=== PATIENT | female | born 1940 | race Caucasian/White ===

== ENCOUNTER 2020-02-04 14:51 | Inpatient (IN) | payer MEDICARE, BC ==
[~2020-02-04] VITALS: Ht 152.4 cm; Wt 51.3 kg
[2020-02-05] MEDS ORDERED: Z GUARD REMEDY PASTE 57 GM TUBE TOP PRN (20:00)
[2020-02-05] MEDS ORDERED: BLOOD SUGAR DIAGNOSTIC 1 EACH STRIP VI SCH (21:45)
[2020-02-05 22:02] VITALS: BP 109/45
[2020-02-05] MEDS: BLOOD SUGAR DIAGNOSTIC 1 EACH STRIP VI SCH (22:30)
[2020-02-05] MEDS ORDERED: DEXTROSE 50% 50 ML DISP.SYRIN IV PRN (22:30)
[2020-02-05] MEDS ORDERED: ASPI-612 PO (23:17)
[2020-02-05] MEDS ORDERED: AMLO5TAB9 PO (23:18)
[2020-02-05] MEDS ORDERED: CHOL10002 PO (23:19)
[2020-02-05] MEDS ORDERED: LIOT25TA7 PO (23:19)
[2020-02-05] MEDS ORDERED: OMEP20TA20 PO (23:20)
[2020-02-05] MEDS ORDERED: LOSA1TAB42 PO (23:20)
[2020-02-05] MEDS ORDERED: PARO-64 PO (23:21)
[2020-02-05] MEDS ORDERED: UBID100T7 PO (23:22)
[2020-02-05] MEDS: INSULIN REGULAR, HUMAN 300 UNITS/3 ML VIAL SQ PRN (23:51)
--- NOTE | 2020-02-06 01:00 | NUR ---
RECEIVED REPORT AND RESUMED CARE FOR PATIENT. CONTINUED PATIENT'S ADMISSION. NOTIFIED DR WELSH AND DR HAND OF PATIENT'S ADMISSION. PATIENT IS ALERT AND VERBALLY RESPONSIVE. ABLE TO MAKE NEEDS KNOWN. PATIENT WITH EPISODE OF FORGETFULNESS. NO COMPLAINTS OF PAIN AT THIS TIME. RE-ORIENTED PATIENT TO ROOM AND BED CONTROLS. KEPT PATIENT WARM, DRY, AND COMFORTABLE. FALL AND SAFETY PRECAUTIONS OBSERVED. ALL NEEDS ATTENDED.
--- NOTE | 2020-02-06 01:30 | NUR ---
PATIENT HAD X 2 XL BM, LOOSE, BROWN. PATIENT RECEIVED MAG CITRATE FROM [facility] PRIOR TO TRANSFER PER REPORT. KEPT PATIENT CLEAN AND DRY.
[2020-02-06] MEDS ORDERED: ACETAMINOPHEN 325 MG TABLET PO PRN (02:30)
[2020-02-06 04:50] VITALS: BP 119/46
[2020-02-06] MEDS: BLOOD SUGAR DIAGNOSTIC 1 EACH STRIP VI SCH ×4 (06:30→21:03)
[2020-02-06 08:00] VITALS: BP_SYST 139; BP_SYST 165; BP_DIAS 51; BP_DIAS 56
[2020-02-06] MEDS: INSULIN REGULAR, HUMAN 300 UNIT/3 ML VIAL SQ PRN ×4 (09:12→21:06)
[2020-02-06] MEDS: ACETAMINOPHEN 325 MG TABLET PO PRN ×2 (13:31→21:04)
[2020-02-06 16:38] VITALS: BP 138/52
--- NOTE | 2020-02-06 20:00 | NUR ---
AWAKE ALERT [place] COMPLAINING OF LEFT HIP PAIN TYLENOL GRAIN 10 PO GIVEN,CALLED DAUGHTER REGARDING PAXIL, CALLED [facility] FOR PAXIL 20 MG AND BENADRYL FOR SLEEP. LEFT HIP DRESSINGS CHANGED WITH SEROUS SANGUINOUS DRAINAGE
[2020-02-06 20:36] VITALS: BP 144/46
[2020-02-06] MEDS ORDERED: PAROXETINE HCL 20 MG TABLET PO ONE (21:15)
[2020-02-06] MEDS: diphenhydrAMINE 25 MG CAP PO PRN (21:43)
--- NOTE | 2020-02-06 23:00 | NUR ---
dr almazan called for stronger pain pill norco 10 mg given,pt a little disoriented. found siiting in the bed,reposioned for comfort,reoriented bed alarm on.
[2020-02-06] MEDS: HYDROCODONE/APAP 10-325 MG TABLET PO PRN (23:26)
[2020-02-07 05:12] VITALS: BP 155/62
--- NOTE | 2020-02-07 05:49 | NUR ---
SLEPT AT LONG INTERVALS.IN NO ACUTE DISTRESS
[2020-02-07] MEDS: BLOOD SUGAR DIAGNOSTIC 1 EACH STRIP VI SCH ×4 (06:03→21:14)
[2020-02-07 07:14] LABS: BASOPHILS % (AUTO) 0.7 % (0.0-2.0); EOSINOPHILS # (AUTO) 0.1 K/uL (0.0-0.7); EOSINOPHILS % (AUTO) 1.5 % (0.0-7.0); HEMATOCRIT 25.4 % (31.2-41.9); HEMOGLOBIN 8.7 g/dL (10.9-14.3); LYMPHOCYTES % (AUTO) 14.5 % (20.5-51.5); MEAN CORPUSCULAR HEMOGLOBIN 31.3 uug (24.7-32.8); MEAN CORPUSCULAR HGB CONC 34 g/dL (32.3-35.6); MEAN CORPUSCULAR VOLUME 90.9 fL (75.5-95.3); MONOCYTES # (AUTO) 0.8 K/uL (2.0-10.0); MONOCYTES % (AUTO) 11.7 % (0.0-11.0); NEUTROPHILS # (AUTO) 5.1 K/uL (1.8-8.9); NEUTROPHILS % (AUTO) 71.6 % (38.5-71.5); PLATELET COUNT (AUTO) 328 K/uL (179-408); RED BLOOD CELL COUNT(AUTO) 2.79 MIL/uL (3.63-4.92); WHITE BLOOD COUNT (AUTO) 7.1 K/uL (3.8-11.8)
[2020-02-07 07:16] LABS: CREATININE 0.8 mg/dL (0.6-1.3); MAGNESIUM 2.2 mg/dL (1.8-2.4); PHOSPHOROUS 2.5 mg/dL (2.5-4.9); POTASSIUM 3.6 mmol/L (3.5-5.1)
[2020-02-07 07:44] VITALS: BP 170/68
[2020-02-07] MEDS: CHOLECALCIFEROL 1,000 UNIT TABLET PO SCH (08:55)
[2020-02-07] MEDS: PANTOPRAZOLE SODIUM 40 MG TABLET.DR PO SCH (08:55)
[2020-02-07] MEDS: PAROXETINE HCL 20 MG TABLET PO SCH (08:56)
[2020-02-07] MEDS: INSULIN REGULAR, HUMAN 300 UNIT/3 ML VIAL SQ PRN ×4 (08:58→21:15)
[2020-02-07] MEDS: AMLODIPINE 5 MG TABLET PO SCH (09:00)
[2020-02-07] MEDS ORDERED: Medication Not On Formulary EA (Ubidecarenone (Coenzyme Q10) 100 MG) PO SCH (09:00)
[2020-02-07] MEDS: HYDROCHLOROTHIAZIDE 12.5 MG CAPSULE PO SCH (09:00)
[2020-02-07] MEDS: ASPIRIN 325 MG TABLET PO SCH (09:00)
[2020-02-07] MEDS: LOSARTAN POTASSIUM 50 MG TABLET PO SCH (09:01)
[2020-02-07] MEDS: ACETAMINOPHEN 325 MG TABLET PO PRN ×2 (09:13→16:09)
[2020-02-07] MEDS: LIOTHYRONINE SODIUM 25 MCG TABLET PO SCH (10:10)
[2020-02-07] MEDS: METFORMIN HCL 500 MG TABLET PO SCH ×2 (12:53→17:33)
--- NOTE | 2020-02-07 14:30 | NUR ---
Family Contact: SW called the pts daughter, Rebeca ([phone]), and informed her that the pt will need caregiving resources and provided the resources to her so that she can assist with the patient. SW provided the following resources: [facility]; ([phone]), [facility]; ([phone]), [facility]; ([phone]).
--- NOTE | 2020-02-07 14:35 | NUR ---
Social Service Assessment: Patient states that she has an apartment with lots of steps and that she may need assistance when she goes back home so SW provided resources. SW provided patient with the following caregiving resources: [facility]; ([phone]), [facility]; ([phone]), [facility]; ([phone]). calender worker helper will continue to remain available to patient and provide ongoing supportive counseling and assess for any psychosocial needs. calender worker helper will encourage patient to comply with ARU goals of care.
[2020-02-07 15:15] VITALS: BP 128/50
--- NOTE | 2020-02-07 18:00 | NUR ---
Patient remains alert, oriented x 3, not in any form of distress, on room air. Patient complained of pain on left hip and requested for Tylenol PRN as ordered with noted relief. Patient participated with PT, OT and ST. Assisted patient in using the bedside commode for voiding. Needs attended to promptly. Call light and frequently used items placed within patient's reach. Safety measures maintained.
[2020-02-07] MEDS: HYDROCODONE/APAP 10-325 MG TABLET PO PRN (20:04)
--- NOTE | 2020-02-08 05:26 | NUR ---
Patient asleep easily arousable. No complain of any pain or discomfort at this time. She was able to sleep through the night. Vital signs stable. turned and repositioned. Both heels elevated with pillow. Surgical dressing kept clean and dry, no noted signs of infection. Will continue to monitor.
[2020-02-08] MEDS: BLOOD SUGAR DIAGNOSTIC 1 EACH STRIP VI SCH ×4 (06:46→21:09)
[2020-02-08 08:01] VITALS: BP 145/58
[2020-02-08] MEDS: CHOLECALCIFEROL 1,000 UNIT TABLET PO SCH (08:29)
[2020-02-08] MEDS: ASPIRIN 325 MG TABLET PO SCH (08:29)
[2020-02-08] MEDS: LOSARTAN POTASSIUM 50 MG TABLET PO SCH (08:29)
[2020-02-08] MEDS: PAROXETINE HCL 20 MG TABLET PO SCH (08:29)
[2020-02-08] MEDS: METFORMIN HCL 500 MG TABLET PO SCH ×2 (08:30→17:20)
[2020-02-08] MEDS: LIOTHYRONINE SODIUM 25 MCG TABLET PO SCH (08:30)
[2020-02-08] MEDS: HYDROCHLOROTHIAZIDE 12.5 MG CAPSULE PO SCH (08:30)
[2020-02-08] MEDS: PANTOPRAZOLE SODIUM 40 MG TABLET.DR PO SCH (08:30)
[2020-02-08] MEDS: AMLODIPINE 5 MG TABLET PO SCH (08:30)
[2020-02-08] MEDS: HYDROCODONE/APAP 10-325 MG TABLET PO PRN ×2 (08:57→17:20)
[2020-02-08] MEDS: INSULIN REGULAR, HUMAN 300 UNITS/3 ML VIAL SQ PRN ×3 (08:57→21:49)
[2020-02-08 16:47] VITALS: BP 121/42
[2020-02-08] MEDS: INSULIN REGULAR, HUMAN 300 UNIT/3 ML VIAL SQ PRN (16:48)
--- NOTE | 2020-02-08 18:05 | NUR ---
Patient continue therapy for increase strenght and endurance. Change dressing for S/P left hip nailing. draining with blood without foul smell. Patient continue pain management prior to therapy and if needed. Continue blood sugar monitoring with sliding scale protocol. tolerated well. not in distress. will continue monitor
--- NOTE | 2020-02-08 19:10 | NUR ---
INDIVIDUALIZED PLAN OF CARE
[2020-02-08 20:37] VITALS: BP 125/46
--- NOTE | 2020-02-08 20:39 | NUR ---
resting in bed upon initial rounds. AAO x3 forgetful at times. VSS no acute distress noted. Continent of bowel and bladder. Uses bedpan. Needs attended. Left hip dressing clean dry and intact. Will monitor patient. All due meds given.
[2020-02-08] MEDS: LEGATRIN PM PO SCH (21:05)
[2020-02-09] MEDS: diphenhydrAMINE 25 MG CAP PO PRN (00:48)
[2020-02-09] MEDS: HYDROCODONE/APAP 10-325 MG TABLET PO PRN ×3 (00:48→16:48)
[2020-02-09 05:10] VITALS: BP 142/52
[2020-02-09] MEDS: BLOOD SUGAR DIAGNOSTIC 1 EACH STRIP VI SCH ×4 (06:33→20:58)
--- NOTE | 2020-02-09 06:35 | NUR ---
End of shift notes: Slept well throughout the night. No acute distress noted. All needs attended and met. Continent of bowel and bladder. Uses bedpan at night. No BM noted this shift. VSS. Repositioned.
[2020-02-09 08:32] VITALS: BP 133/52
--- NOTE | 2020-02-09 09:30 | NUR ---
RECEIVED PATIENT ASLEEP IN BED, AROUSABLE BY NAME. ORIENTED X 3, FORGETFUL. VSS. NO S/S OF DISTRESS OR SOB AT THIS TIME. NOTED LEFT HIP DRESSING, DRY AND INTACT. NO S/S OF BLEEDING. ABLE TO USE BEDPAN, CONTINENT OF BOWEL AND BLADDER.
[2020-02-09] MEDS: HYDROCHLOROTHIAZIDE 12.5 MG CAPSULE PO SCH (09:37)
[2020-02-09] MEDS: PANTOPRAZOLE SODIUM 40 MG TABLET.DR PO SCH (09:37)
[2020-02-09] MEDS: METFORMIN HCL 500 MG TABLET PO SCH ×2 (09:37→17:31)
[2020-02-09] MEDS: ASPIRIN 325 MG TABLET PO SCH (09:37)
[2020-02-09] MEDS: PAROXETINE HCL 20 MG TABLET PO SCH (09:37)
[2020-02-09] MEDS: CHOLECALCIFEROL 1,000 UNIT TABLET PO SCH (09:37)
[2020-02-09] MEDS: LIOTHYRONINE SODIUM 25 MCG TABLET PO SCH (09:37)
[2020-02-09] MEDS: AMLODIPINE 5 MG TABLET PO SCH (09:40)
[2020-02-09] MEDS: LOSARTAN POTASSIUM 50 MG TABLET PO SCH (09:41)
[2020-02-09] MEDS: INSULIN REGULAR, HUMAN 300 UNIT/3 ML VIAL SQ PRN (12:34)
[2020-02-09 16:16] VITALS: BP 118/51
--- NOTE | 2020-02-09 19:30 | NUR ---
Patient home medication for restless leg syndrome Legartrin PM not available made charge nurse and travel information center supervisor aware.
--- NOTE | 2020-02-09 20:00 | NUR ---
Spoke to daughter Rebeca to get new bottle of legartrin medication for her mother because not available tonight, was not replaced by pharmacy
[2020-02-09 20:45] VITALS: BP 141/54
[2020-02-09] MEDS: LEGATRIN PM PO SCH (21:00)
[2020-02-09] MEDS: INSULIN REGULAR, HUMAN 300 UNITS/3 ML VIAL SQ PRN (21:02)
--- NOTE | 2020-02-09 21:15 | NUR ---
Daughter brought medication, administered. Pt is resting. Safety measure in place. Will continue to monitor through the night.
--- NOTE | 2020-02-10 01:56 | NUR ---
Received pt lying bed watching TV. No signs of distress noted. AxOx3, on room air no SOB noted. VVS. Denies any pain at this time. Assisted patient in using the bedside commode for voiding. Needs attended to promptly. Call light and frequently used items placed within patient's reach. Safety measures maintained. Addendum: 02/10/20 at 0203 by BRANDON ARMSTRONG RN RN [id number]
[2020-02-10] MEDS: HYDROCODONE/APAP 10-325 MG TABLET PO PRN ×3 (04:15→20:00)
--- NOTE | 2020-02-10 04:15 | NUR ---
Pt report 6/10 pain, per patient request administered [place] PRN
[2020-02-10 04:42] VITALS: BP 143/48
[2020-02-10] MEDS: BLOOD SUGAR DIAGNOSTIC 1 EACH STRIP VI SCH ×4 (06:49→20:42)
[2020-02-10 06:56] LABS: BASOPHILS % (AUTO) 0.5 % (0.0-2.0); EOSINOPHILS # (AUTO) 0.2 K/uL (0.0-0.7); EOSINOPHILS % (AUTO) 1.9 % (0.0-7.0); HEMATOCRIT 25.4 % (31.2-41.9); HEMOGLOBIN 8.6 g/dL (10.9-14.3); LYMPHOCYTES # (AUTO) 1.1 K/uL (20.0-40.0); LYMPHOCYTES % (AUTO) 11.9 % (20.5-51.5); MEAN CORPUSCULAR HEMOGLOBIN 31.1 uug (24.7-32.8); MEAN CORPUSCULAR HGB CONC 34 g/dL (32.3-35.6); MEAN CORPUSCULAR VOLUME 91.2 fL (75.5-95.3); MONOCYTES % (AUTO) 10.7 % (0.0-11.0); NEUTROPHILS # (AUTO) 7.2 K/uL (1.8-8.9); PLATELET COUNT (AUTO) 489 K/uL (179-408); RED BLOOD CELL COUNT(AUTO) 2.78 MIL/uL (3.63-4.92); WHITE BLOOD COUNT (AUTO) 9.7 K/uL (3.8-11.8)
[2020-02-10 07:20] LABS: THYROID STIMULATING HORMONE 0.831 mIU/mL (0.358-3.740)
[2020-02-10 07:59] LABS: BILIRUBIN,TOTAL 0.9 mg/dL (0.2-1.0); CREATININE 0.8 mg/dL (0.6-1.3); MAGNESIUM 1.7 mg/dL (1.8-2.4); POTASSIUM 3.7 mmol/L (3.5-5.1); TOTAL PROTEIN, SERUM 5.6 g/dL (6.4-8.2)
[2020-02-10 08:24] VITALS: BP 141/55
[2020-02-10] MEDS: METFORMIN HCL 500 MG TABLET PO SCH ×2 (08:29→17:27)
[2020-02-10] MEDS: LOSARTAN POTASSIUM 50 MG TABLET PO SCH (08:30)
[2020-02-10] MEDS: AMLODIPINE 5 MG TABLET PO SCH (08:30)
[2020-02-10] MEDS: ASPIRIN 325 MG TABLET PO SCH (08:30)
[2020-02-10] MEDS: PANTOPRAZOLE SODIUM 40 MG TABLET.DR PO SCH (08:30)
[2020-02-10] MEDS: PAROXETINE HCL 20 MG TABLET PO SCH (08:30)
[2020-02-10] MEDS: CHOLECALCIFEROL 1,000 UNIT TABLET PO SCH (08:30)
[2020-02-10] MEDS: HYDROCHLOROTHIAZIDE 12.5 MG CAPSULE PO SCH (08:30)
[2020-02-10] MEDS: LIOTHYRONINE SODIUM 25 MCG TABLET PO SCH (08:31)
[2020-02-10] MEDS: INSULIN REGULAR, HUMAN 300 UNIT/3 ML VIAL SQ PRN ×3 (08:34→17:28)
[2020-02-10] MEDS: ACETAMINOPHEN 325 MG TABLET PO PRN (08:46)
[2020-02-10] MEDS ORDERED: MAGNESIUM SULFATE/D5W 100 ML IV SCH (09:45)
[2020-02-10 15:35] VITALS: BP 127/42
--- NOTE | 2020-02-10 19:35 | NUR ---
Assisted to the bathroom with walker, slow, unsteady gait, denies pain, no SOBOE. Voided well, no problem. Assisted back to bed. Able to turn and repositioned self for comfort. Safety measure and fall prevention observed. Continue care as planned,.
[2020-02-10 20:00] VITALS: BP 118/59
--- NOTE | 2020-02-10 20:00 | NUR ---
Ambulated to the bathroom with assist then complaint of left hip pain, medicated as needed and ordered. Will monitor.
[2020-02-10] MEDS: LEGATRIN PM PO SCH (20:03)
[2020-02-10] MEDS: INSULIN REGULAR, HUMAN 300 UNITS/3 ML VIAL SQ PRN (20:46)
[2020-02-11 05:14] VITALS: BP 130/64
[2020-02-11] MEDS: BLOOD SUGAR DIAGNOSTIC 1 EACH STRIP VI SCH ×4 (05:26→20:19)
[2020-02-11] MEDS: HYDROCODONE/APAP 10-325 MG TABLET PO PRN ×3 (05:42→18:15)
--- NOTE | 2020-02-11 05:47 | NUR ---
Shift End Report: VS stable. Medicated twice for pain with relied. Denies any s/s of hyperglycemia. All needs attended and met. Continue care as planned.
[2020-02-11 08:51] VITALS: BP 123/53
[2020-02-11] MEDS: METFORMIN HCL 500 MG TABLET PO SCH ×2 (08:54→17:24)
[2020-02-11] MEDS: HYDROCHLOROTHIAZIDE 12.5 MG CAPSULE PO SCH (08:55)
[2020-02-11] MEDS: LIOTHYRONINE SODIUM 25 MCG TABLET PO SCH (08:55)
[2020-02-11] MEDS: LOSARTAN POTASSIUM 50 MG TABLET PO SCH (08:55)
[2020-02-11] MEDS: AMLODIPINE 5 MG TABLET PO SCH (08:55)
[2020-02-11] MEDS: PAROXETINE HCL 20 MG TABLET PO SCH (08:55)
[2020-02-11] MEDS: CHOLECALCIFEROL 1,000 UNIT TABLET PO SCH (08:55)
[2020-02-11] MEDS: ASPIRIN 325 MG TABLET PO SCH (08:55)
[2020-02-11] MEDS: PANTOPRAZOLE SODIUM 40 MG TABLET.DR PO SCH (08:55)
--- NOTE | 2020-02-11 10:03 | NUR ---
Received patient in room, Patient is AAO x 3. NO acute distress noted. patient stated no pain at this time except when moving. IV site on left FA intact and patent. Offered breakfast to patient but patient stated she does not eat breakfast and does not like eating food in the morning and is ok taking mediations without food. Patient also asked to hold Insulin because she did not eat breakfast. All due meds administered as ordered and scheduled and tolerated well. Left hip surgical site with dressing in place, dressing intact and dry. Patient on PT/OT therapy. Needs attended and will continue with care.
[2020-02-11] MEDS: INSULIN REGULAR, HUMAN 300 UNIT/3 ML VIAL SQ PRN (11:53)
[2020-02-11 15:32] VITALS: BP 114/51
--- NOTE | 2020-02-11 18:45 | NUR ---
Patient in bed and resting at this time. Needs attended, safety measures in place. Patient administered [place] 10/325mg PO q 6 hrsprn for left hip pain and tolerated well. Dressing intact and dry. VS stable and will continue with care.
--- NOTE | 2020-02-11 19:30 | NUR ---
Watching TV during initial rounds. Denies any pain/discomforts at this time. Safety measures and fall prevention maintained. Continue care as planned.
--- NOTE | 2020-02-11 20:05 | NUR ---
INTERDISCIPLINARY TEAM CONFERENCE
[2020-02-11] MEDS: LEGATRIN PM PO SCH (20:19)
[2020-02-11] MEDS: INSULIN REGULAR, HUMAN 300 UNITS/3 ML VIAL SQ PRN (20:21)
[2020-02-11 20:40] VITALS: BP 135/52
[2020-02-12] MEDS: HYDROCODONE/APAP 10-325 MG TABLET PO PRN ×2 (03:22→20:38)
[2020-02-12 05:25] VITALS: BP 122/69
[2020-02-12] MEDS: BLOOD SUGAR DIAGNOSTIC 1 EACH STRIP VI SCH ×4 (06:11→20:42)
--- NOTE | 2020-02-12 06:39 | NUR ---
Shift End Report: Uneventful night. All needs attended and met. Slept good. Pain medication given x 1, effective. No further complaint of pain presented. Continue current rehab plan of care. VS stable.
[2020-02-12 07:30] VITALS: BP 127/54
[2020-02-12] MEDS: INSULIN REGULAR, HUMAN 300 UNIT/3 ML VIAL SQ PRN ×2 (08:15→12:24)
[2020-02-12] MEDS: METFORMIN HCL 500 MG TABLET PO SCH ×2 (08:50→18:03)
[2020-02-12] MEDS: PAROXETINE HCL 20 MG TABLET PO SCH (09:25)
[2020-02-12] MEDS: PANTOPRAZOLE SODIUM 40 MG TABLET.DR PO SCH (09:25)
[2020-02-12] MEDS: LIOTHYRONINE SODIUM 25 MCG TABLET PO SCH (09:25)
[2020-02-12] MEDS: HYDROCHLOROTHIAZIDE 12.5 MG CAPSULE PO SCH (09:25)
[2020-02-12] MEDS: CHOLECALCIFEROL 1,000 UNIT TABLET PO SCH (09:25)
[2020-02-12] MEDS: ASPIRIN 325 MG TABLET PO SCH (09:25)
[2020-02-12] MEDS: AMLODIPINE 5 MG TABLET PO SCH (09:27)
[2020-02-12] MEDS: LOSARTAN POTASSIUM 50 MG TABLET PO SCH (09:28)
--- NOTE | 2020-02-12 10:55 | NUR ---
Received patient in room; patient is AAO x 3 with episodes of forgetfulness noted at times. NO acute distress noted. Vital signs stable for patient. Surgical site dressing intact and dry. All due medications administered as ordered and scheduled. on PT/OT as ordered and will continue with care.
--- NOTE | 2020-02-12 14:17 | NUR ---
Family ordered food and patient eating lunch at this time will continue with care.
[2020-02-12 15:41] VITALS: BP 101/45
--- NOTE | 2020-02-12 18:52 | NUR ---
Vital signs stable, Needs attended, No new change of condition noted; evening med administered and tolerated. D/C IV line from left FA. Call light left at bed side and will continue with care.
--- NOTE | 2020-02-12 19:38 | NUR ---
End of shift report given to pm nurse.
--- NOTE | 2020-02-12 19:38 | NUR ---
Patient administered [place] 10/325 1 tab po q 6hrsprn for pain before PT/OT therapy. Forgot to scan medication.
[2020-02-12] MEDS: LEGATRIN PM PO SCH (20:38)
[2020-02-12] MEDS: INSULIN REGULAR, HUMAN 300 UNITS/3 ML VIAL SQ PRN (20:44)
[2020-02-12 20:58] VITALS: BP 125/41
--- NOTE | 2020-02-12 22:48 | NUR ---
Resting in bed. AAOx3-4 Needs attended. VSS Kept comfortable. Medicated for pain as needed with relief obtained. Left hip dressing clean dry and intact. Incontinent of urine and BM. Kept clean and dry. BM noted this shift. Fall precautions maintained. Siderails up for safety.
[2020-02-13 06:00] VITALS: BP 124/57
--- NOTE | 2020-02-13 06:49 | NUR ---
End of shift notes: quiet night. aaox3. VSS no acute distress noted. Fall precautions maintained. Call khan within reach. No complained of pain noted. attended to needs and met.
--- NOTE | 2020-02-13 07:55 | NUR ---
Received patient in room; patient is AAO x 3; forgetful at times. NO acute distress noted. Vital signs stable for patient. Safety measures in place and will continue with care.
[2020-02-13 08:00] VITALS: BP 129/48
[2020-02-13] MEDS: BLOOD SUGAR DIAGNOSTIC 1 EACH STRIP VI SCH ×4 (08:05→20:23)
[2020-02-13] MEDS: METFORMIN HCL 500 MG TABLET PO SCH ×2 (08:19→18:23)
[2020-02-13] MEDS: HYDROCODONE/APAP 10-325 MG TABLET PO PRN ×2 (08:20→18:31)
[2020-02-13] MEDS: INSULIN REGULAR, HUMAN 300 UNIT/3 ML VIAL SQ PRN ×2 (08:39→12:25)
[2020-02-13] MEDS: LIOTHYRONINE SODIUM 25 MCG TABLET PO SCH (10:18)
[2020-02-13] MEDS: PAROXETINE HCL 20 MG TABLET PO SCH (10:18)
[2020-02-13] MEDS: HYDROCHLOROTHIAZIDE 12.5 MG CAPSULE PO SCH (10:18)
[2020-02-13] MEDS: ASPIRIN 325 MG TABLET PO SCH (10:18)
[2020-02-13] MEDS: CHOLECALCIFEROL 1,000 UNIT TABLET PO SCH (10:18)
[2020-02-13] MEDS: AMLODIPINE 5 MG TABLET PO SCH (10:19)
[2020-02-13] MEDS: PANTOPRAZOLE SODIUM 40 MG TABLET.DR PO SCH (10:19)
[2020-02-13] MEDS: LOSARTAN POTASSIUM 50 MG TABLET PO SCH (10:19)
[2020-02-13] MEDS: ACETAMINOPHEN 325 MG TABLET PO PRN (12:31)
--- NOTE | 2020-02-13 13:20 | NUR ---
Left hip surgical site dressing changed, incision site with john intact, no s/sx of infection noted. Made comfortable and will continue with care.
[2020-02-13 16:00] VITALS: BP 116/50
--- NOTE | 2020-02-13 19:05 | NUR ---
Patient in bed at this time, vital signs stable for patient, due evening meds administered and tolerated. Family brought food and patient eating dinner at this time. [place] 10/325mg PO 1 tab PRN q 6hrs administered and tolerated well.
--- NOTE | 2020-02-13 19:30 | NUR ---
NSG: Received Patient lying in bed , plesant upon approach .vital signs stable.for patient, HS meds administered and tolerated well.
--- NOTE | 2020-02-13 19:55 | NUR ---
End of shift report given to pm nurse.
[2020-02-13 20:13] VITALS: BP 131/42
[2020-02-13] MEDS: LEGATRIN PM PO SCH (20:18)
[2020-02-13] MEDS: INSULIN REGULAR, HUMAN 300 UNITS/3 ML VIAL SQ PRN (20:29)
--- NOTE | 2020-02-14 04:28 | NUR ---
NSG: Remained calm and cooperative with meds and care. slept well. Assisted to the bathroom with walker, slow, unsteady gait, denies pain at this time. no SOB noted. Voided well, no problem. Able to turn and repositioned self for comfort. Safety measure and fall prevention observed. Continue plan of care.
[2020-02-14 05:17] VITALS: BP 138/52
[2020-02-14 05:25] VITALS: BP 138/52
[2020-02-14] MEDS: BLOOD SUGAR DIAGNOSTIC 1 EACH STRIP VI SCH ×4 (06:11→20:36)
[2020-02-14 08:51] VITALS: BP 122/56
[2020-02-14] MEDS: ASPIRIN 325 MG TABLET PO SCH (10:33)
[2020-02-14] MEDS: HYDROCODONE/APAP 10-325 MG TABLET PO PRN ×2 (10:34→18:01)
[2020-02-14] MEDS: HYDROCHLOROTHIAZIDE 12.5 MG CAPSULE PO SCH (10:34)
[2020-02-14] MEDS: METFORMIN HCL 500 MG TABLET PO SCH (10:35)
[2020-02-14] MEDS: PANTOPRAZOLE SODIUM 40 MG TABLET.DR PO SCH (10:35)
[2020-02-14] MEDS: LIOTHYRONINE SODIUM 25 MCG TABLET PO SCH (10:35)
[2020-02-14] MEDS: glipiZIDE 5 MG TABLET PO SCH ×2 (10:36→16:30)
[2020-02-14] MEDS: LOSARTAN POTASSIUM 50 MG TABLET PO SCH (10:36)
[2020-02-14] MEDS: AMLODIPINE 5 MG TABLET PO SCH (10:37)
[2020-02-14] MEDS: CHOLECALCIFEROL 1,000 UNIT TABLET PO SCH (10:38)
[2020-02-14] MEDS: PAROXETINE HCL 20 MG TABLET PO SCH (10:38)
[2020-02-14] MEDS: INSULIN REGULAR, HUMAN 300 UNIT/3 ML VIAL SQ PRN ×2 (10:41→11:59)
[2020-02-14] MEDS: ACETAMINOPHEN 325 MG TABLET PO PRN (13:00)
[2020-02-14 16:04] VITALS: BP 105/51
--- NOTE | 2020-02-14 17:52 | NUR ---
Patient seen by Dr. Davies, informed MD regarding episode of BS 75, MD ordered to hold dose of Glipizide at this time. Informed MD that per patient she has not been taking Metformin anymore as told by her primary. Dr. Davies ordered to discontinue Metformin.
[2020-02-14] MEDS ORDERED: MAGNESIUM CITRATE 296 ML BOTTLE PO ONE (19:30)
--- NOTE | 2020-02-14 19:30 | NUR ---
Awake, watching TV at this time. Denies any pain/discomforts. No s/s of respiratory distress. Safety measures and fall prevention observed. Continue plan of care
[2020-02-14] MEDS: LEGATRIN PM PO SCH (20:35)
[2020-02-14 20:36] VITALS: BP 117/46
[2020-02-14] MEDS: INSULIN REGULAR, HUMAN 300 UNITS/3 ML VIAL SQ PRN (20:37)
[2020-02-15 04:45] VITALS: BP 126/52
--- NOTE | 2020-02-15 05:26 | NUR ---
Shift End Report: Slept well. No complaint of pain/discomforts presented the whole night. No s/s of hypo/hyperglycemia. All needs anticipated. attended and met. Continue current rehab plan of care.
[2020-02-15] MEDS: BLOOD SUGAR DIAGNOSTIC 1 EACH STRIP VI SCH ×4 (06:22→20:41)
[2020-02-15] MEDS: glipiZIDE 5 MG TABLET PO SCH ×2 (06:22→17:04)
[2020-02-15] MEDS: HYDROCHLOROTHIAZIDE 12.5 MG CAPSULE PO SCH (08:42)
[2020-02-15] MEDS: PAROXETINE HCL 20 MG TABLET PO SCH (08:42)
[2020-02-15] MEDS: CHOLECALCIFEROL 1,000 UNIT TABLET PO SCH (08:42)
[2020-02-15] MEDS: ASPIRIN 325 MG TABLET PO SCH (08:42)
[2020-02-15] MEDS: PANTOPRAZOLE SODIUM 40 MG TABLET.DR PO SCH (08:42)
[2020-02-15 08:43] VITALS: BP 142/53
[2020-02-15] MEDS: AMLODIPINE 5 MG TABLET PO SCH (08:43)
[2020-02-15] MEDS: LOSARTAN POTASSIUM 50 MG TABLET PO SCH (08:43)
[2020-02-15] MEDS: LIOTHYRONINE SODIUM 25 MCG TABLET PO SCH (08:43)
[2020-02-15] MEDS: INSULIN REGULAR, HUMAN 300 UNIT/3 ML VIAL SQ PRN ×3 (08:46→17:11)
[2020-02-15] MEDS: HYDROCODONE/APAP 10-325 MG TABLET PO PRN ×2 (08:56→18:07)
[2020-02-15] MEDS ORDERED: GLIMEPIRIDE 2 MG TABLET PO SCH (09:30)
[2020-02-15] MEDS: ACETAMINOPHEN 325 MG TABLET PO PRN ×2 (13:03→19:38)
[2020-02-15 15:12] VITALS: BP 107/47
--- NOTE | 2020-02-15 19:30 | NUR ---
Awake, in bed, watching TV at this time. No s/s of pain/discomforts presented, calm and very pleasant. Very optimistic to what's going on and planning for a nice discharge home with the daughter. Made comfortable in bed. Safety measures and fall prevention observed. Continue care as planned.
[2020-02-15 20:00] VITALS: BP 120/58
[2020-02-15] MEDS: INSULIN REGULAR, HUMAN 300 UNITS/3 ML VIAL SQ PRN (20:43)
[2020-02-15] MEDS: LEGATRIN PM PO SCH (20:46)
[2020-02-16] MEDS: HYDROCODONE/APAP 10-325 MG TABLET PO PRN ×4 (01:07→22:05)
[2020-02-16 04:00] VITALS: BP 125/55
[2020-02-16] MEDS: glipiZIDE 5 MG TABLET PO SCH ×2 (06:37→16:17)
[2020-02-16] MEDS: BLOOD SUGAR DIAGNOSTIC 1 EACH STRIP VI SCH ×4 (06:38→20:05)
[2020-02-16] MEDS: INSULIN REGULAR, HUMAN 300 UNIT/3 ML VIAL SQ PRN ×3 (07:42→17:11)
[2020-02-16 08:00] VITALS: BP 139/57
[2020-02-16] MEDS: PANTOPRAZOLE SODIUM 40 MG TABLET.DR PO SCH (08:32)
[2020-02-16] MEDS: LIOTHYRONINE SODIUM 25 MCG TABLET PO SCH (08:32)
[2020-02-16] MEDS: CHOLECALCIFEROL 1,000 UNIT TABLET PO SCH (08:32)
[2020-02-16] MEDS: PAROXETINE HCL 20 MG TABLET PO SCH (08:32)
[2020-02-16] MEDS: ASPIRIN 325 MG TABLET PO SCH (08:33)
[2020-02-16] MEDS: AMLODIPINE 5 MG TABLET PO SCH (08:33)
[2020-02-16] MEDS: HYDROCHLOROTHIAZIDE 12.5 MG CAPSULE PO SCH (10:50)
[2020-02-16] MEDS: LOSARTAN POTASSIUM 50 MG TABLET PO SCH (10:51)
[2020-02-16] MEDS: ACETAMINOPHEN 325 MG TABLET PO PRN ×2 (11:56→20:04)
[2020-02-16 16:01] VITALS: BP 117/43
--- NOTE | 2020-02-16 18:00 | NUR ---
Patient stable throughout shift AOx3, on RA with no SOB or distress at this time. Ambulated to bathroom with assistance. Pain management and safety precautions in place. Patient complained of pain on left leg, requested for Tylenol, endorsed to next shift. Surgical incision on left leg clean and no s/sx of infection. No other complaints at this time.
[2020-02-16] MEDS: LEGATRIN PM PO SCH (20:04)
[2020-02-16] MEDS: INSULIN REGULAR, HUMAN 300 UNITS/3 ML VIAL SQ PRN (20:08)
[2020-02-16 20:20] VITALS: BP 114/50
--- NOTE | 2020-02-16 20:30 | NUR ---
Received pt resting in bed and watching tv. AAO x3. No acute distress noted. C/o mild pain on the left hip, Tylenol PRN and other due med given as ordered. Accucheck 145, insulin coverage given as per sliding scale. Safety measures maintained. Call light and personal items within reach. Will continue to monitor.
[2020-02-17 04:00] VITALS: BP 125/54
[2020-02-17] MEDS: BLOOD SUGAR DIAGNOSTIC 1 EACH STRIP VI SCH ×4 (06:38→20:49)
[2020-02-17 07:31] VITALS: BP 118/55
--- NOTE | 2020-02-17 07:45 | NUR ---
Received patient in bed sleeping, patient is AAO x 3; able to express needs. NO acute distress noted. NO c/o pain at this time. Call light left at bed side, safety measures in place and will continue with care.
[2020-02-17] MEDS: INSULIN REGULAR, HUMAN 300 UNIT/3 ML VIAL SQ PRN ×3 (07:48→17:29)
[2020-02-17] MEDS: glipiZIDE 5 MG TABLET PO SCH ×2 (07:50→17:20)
[2020-02-17] MEDS: ASPIRIN 325 MG TABLET PO SCH (08:44)
[2020-02-17] MEDS: PAROXETINE HCL 20 MG TABLET PO SCH (08:45)
[2020-02-17] MEDS: AMLODIPINE 5 MG TABLET PO SCH (08:45)
[2020-02-17] MEDS: CHOLECALCIFEROL 1,000 UNIT TABLET PO SCH (08:45)
[2020-02-17] MEDS: HYDROCHLOROTHIAZIDE 12.5 MG CAPSULE PO SCH (08:45)
[2020-02-17] MEDS: PANTOPRAZOLE SODIUM 40 MG TABLET.DR PO SCH (08:45)
[2020-02-17] MEDS: HYDROCODONE/APAP 10-325 MG TABLET PO PRN ×2 (08:46→20:49)
[2020-02-17] MEDS: LIOTHYRONINE SODIUM 25 MCG TABLET PO SCH (08:48)
[2020-02-17] MEDS: LOSARTAN POTASSIUM 50 MG TABLET PO SCH (09:40)
[2020-02-17] MEDS ORDERED: MAGNESIUM HYDROXIDE 30 ML LIQUID UDC PO PRN (11:15)
[2020-02-17 15:52] VITALS: BP 131/73
--- NOTE | 2020-02-17 18:39 | NUR ---
Vital signs stable, due meds administered. BS checks done; administered insulin per sliding scale. Dressing on left hip intact and dry. Needs attended, skin kept clean and dry. Safety measures in place and will continue with care.
--- NOTE | 2020-02-17 19:45 | NUR ---
Assisted pt to the bathroom with walker, steady gait with standby assist. No distress noted. No SOB noted. Voided well, BM x2 collected stool and sent to lab. Assisted back to bed, made comfortable. All needs attended to. Able to make needs known. Safety measure and fall prevention observed and maintained. Continue care as planned.
[2020-02-17 20:00] VITALS: BP 130/60
[2020-02-17] MEDS: DOCUSATE SODIUM 100 MG CAPSULE PO SCH (20:48)
[2020-02-17] MEDS: LEGATRIN PM PO SCH (20:49)
--- NOTE | 2020-02-17 21:00 | NUR ---
Patient Vitals WNL. complained of pain, administered [place] PRN, as per pt request. All due medication administered. Accucheck 162, insulin coverage given as per sliding scale. Safety measures maintained. Call light and personal items within reach. Will continue to monitor.
[2020-02-17] MEDS: INSULIN REGULAR, HUMAN 300 UNITS/3 ML VIAL SQ PRN (21:03)
[2020-02-17 22:36] LABS: *OCCULT BLOOD STOOL NEGATIVE (NEGATIVE)
[2020-02-18 05:16] VITALS: BP 123/58
[2020-02-18] MEDS: glipiZIDE 5 MG TABLET PO SCH ×2 (06:28→15:58)
[2020-02-18] MEDS: BLOOD SUGAR DIAGNOSTIC 1 EACH STRIP VI SCH ×4 (06:37→21:04)
[2020-02-18 08:00] VITALS: BP 140/56
--- NOTE | 2020-02-18 08:00 | NUR ---
Patient is AAO x 3; able to express needs. NO acute distress noted. Vital signs stable. Patient stated shes is not going to eat breakfast and to hold morning dose insulin. All other needs attended, safety measures in place, call light left within easy reach and will continue with care.
[2020-02-18] MEDS: LIOTHYRONINE SODIUM 25 MCG TABLET PO SCH (08:47)
[2020-02-18] MEDS: HYDROCODONE/APAP 10-325 MG TABLET PO PRN ×2 (08:47→21:01)
[2020-02-18] MEDS: ASPIRIN 325 MG TABLET PO SCH (09:37)
[2020-02-18] MEDS: DOCUSATE SODIUM 100 MG CAPSULE PO SCH ×2 (09:37→21:02)
[2020-02-18] MEDS: CHOLECALCIFEROL 1,000 UNIT TABLET PO SCH (09:37)
[2020-02-18] MEDS: HYDROCHLOROTHIAZIDE 12.5 MG CAPSULE PO SCH (09:38)
[2020-02-18] MEDS: PAROXETINE HCL 20 MG TABLET PO SCH (09:38)
[2020-02-18] MEDS: LOSARTAN POTASSIUM 50 MG TABLET PO SCH (09:38)
[2020-02-18] MEDS: AMLODIPINE 5 MG TABLET PO SCH (09:38)
[2020-02-18] MEDS: PANTOPRAZOLE SODIUM 40 MG TABLET.DR PO SCH (09:38)
[2020-02-18] MEDS: INSULIN REGULAR, HUMAN 300 UNIT/3 ML VIAL SQ PRN (11:45)
--- NOTE | 2020-02-18 15:56 | NUR ---
Covid test done.
[2020-02-18] MEDS: ACETAMINOPHEN 325 MG TABLET PO PRN (15:57)
[2020-02-18 16:00] VITALS: BP 135/51
--- NOTE | 2020-02-18 19:00 | NUR ---
All due medications administered as ordered and scheduled. BS wnl. Vital signs stable. NO new change of condition noted. Left hip dressing dry and intact. Skin kept clean and dry. Needs attended, safety measures in place and will continue with care.
--- NOTE | 2020-02-18 19:51 | NUR ---
End of shift report given to pm nurse.
--- NOTE | 2020-02-18 19:59 | NUR ---
INTERDISCIPLINARY TEAM CONFERENCE
[2020-02-18 20:20] VITALS: BP 123/48
[2020-02-18 20:58] LABS: *BILIRUBIN,URIN NEGATIVE (NEGATIVE); *BLOOD, URINE 2+ (NEGATIVE); *COLOR,URINE YELLOW (YELLOW); *KETONES,URINE NEGATIVE (NEGATIVE); *UROBILINOGEN,URINE 0.2 E.U./dl (NORMAL); LEUKOCYTE ESTERASE ,URINE 2+ (NEGATIVE); NITRITE, URINE NEGATIVE (NEGATIVE); UGLUCOSE NEGATIVE (NEGATIVE)
[2020-02-18] MEDS: LEGATRIN PM PO SCH (21:02)
[2020-02-18 21:04] LABS: *CLARITY,URINE HAZY (CLEAR); BACTERIA,URINE FEW /HPF (NONE SEEN); SQUAMOUS EPITHELIAL CELL,UR FEW /HPF (NONE SEEN); WBC,URINE 20-50 /HPF (0-3)
[2020-02-18] MEDS: INSULIN REGULAR, HUMAN 300 UNITS/3 ML VIAL SQ PRN (21:04)
--- NOTE | 2020-02-18 22:00 | NUR ---
Received pt lying in bed watching TV. Vitals WNL No signs and symptoms of distress noted. Complaint of pain 11/11.Axox3-4, makes needs known. Collected UA and sent to lab. All due medication administered as ordered. administered PRN [place] for pain. All needs attended, kept clean dy and comfortable. Safety measures maintained. Call light and all personal items within reach. Will monitor through the night.
[2020-02-18] MEDS: diphenhydrAMINE 25 MG CAP PO PRN (23:42)
[2020-02-19 04:50] VITALS: BP 129/55
[2020-02-19] MEDS: glipiZIDE 5 MG TABLET PO SCH ×2 (06:26→16:50)
[2020-02-19] MEDS: BLOOD SUGAR DIAGNOSTIC 1 EACH STRIP VI SCH ×4 (06:33→20:42)
[2020-02-19 08:00] VITALS: BP 146/62
[2020-02-19] MEDS: CHOLECALCIFEROL 1,000 UNIT TABLET PO SCH (08:13)
[2020-02-19] MEDS: PAROXETINE HCL 20 MG TABLET PO SCH (08:13)
[2020-02-19] MEDS: ASPIRIN 325 MG TABLET PO SCH (08:13)
[2020-02-19] MEDS: HYDROCHLOROTHIAZIDE 12.5 MG CAPSULE PO SCH (08:13)
[2020-02-19] MEDS: DOCUSATE SODIUM 100 MG CAPSULE PO SCH ×2 (08:13→20:42)
[2020-02-19] MEDS: PANTOPRAZOLE SODIUM 40 MG TABLET.DR PO SCH (08:13)
[2020-02-19] MEDS: AMLODIPINE 5 MG TABLET PO SCH (08:14)
[2020-02-19] MEDS: LOSARTAN POTASSIUM 50 MG TABLET PO SCH (08:14)
[2020-02-19] MEDS: LIOTHYRONINE SODIUM 25 MCG TABLET PO SCH (08:14)
[2020-02-19] MEDS: INSULIN REGULAR, HUMAN 300 UNIT/3 ML VIAL SQ PRN ×3 (08:16→16:55)
[2020-02-19] MEDS: ACETAMINOPHEN 325 MG TABLET PO PRN (15:10)
--- NOTE | 2020-02-19 15:17 | NUR ---
Dr. Page in the unit, received from an order to remove surgical john.
--- NOTE | 2020-02-19 16:23 | NUR ---
Surgical john removed as ordered by Dr. Page. Surgical incision well coaptated, dry, no drainage, no signs of infection.
[2020-02-19 16:26] VITALS: BP 132/45
--- NOTE | 2020-02-19 16:32 | NUR ---
Dr. Adebayo José in the unit, informed MD regarding urinalysis and urine culture results. MD ordered Bactrim DS 1 tab PO x 5 days.
[2020-02-19] MEDS: SULFAMETH/TRIMETH 800/160 MG TABLET PO SCH (17:23)
[2020-02-19 20:00] VITALS: BP 115/64
[2020-02-19] MEDS: LEGATRIN PM PO SCH (20:41)
--- NOTE | 2020-02-19 21:00 | NUR ---
Received pt lying in bed watching TV. Vitals WNL No signs and symptoms of distress noted. denied any pain or discomfort at this time. Axox3-4, makes needs known. Accucheck 100, no insulin coverage. All due medication administered as ordered. Incision site intact and dry, no drainage, o s/s of infection noted. All needs attended, kept clean dy and comfortable. Safety measures maintained. Call light and all personal items within reach. Will monitor through the night.
[2020-02-19] MEDS: HYDROCODONE/APAP 10-325 MG TABLET PO PRN (22:50)
[2020-02-20] MEDS: diphenhydrAMINE 25 MG CAP PO PRN ×2 (01:17→21:03)
--- NOTE | 2020-02-20 03:30 | NUR ---
As per pt request administered PRN [place] for pain, pt complaint of 11/11.
[2020-02-20 04:00] VITALS: BP 134/56
[2020-02-20] MEDS: BLOOD SUGAR DIAGNOSTIC 1 EACH STRIP VI SCH ×4 (06:13→20:58)
[2020-02-20] MEDS: glipiZIDE 5 MG TABLET PO SCH ×2 (06:13→17:19)
[2020-02-20 08:00] VITALS: BP 134/63
[2020-02-20] MEDS: INSULIN REGULAR, HUMAN 300 UNIT/3 ML VIAL SQ PRN ×3 (08:28→21:01)
[2020-02-20] MEDS: PAROXETINE HCL 20 MG TABLET PO SCH (08:37)
[2020-02-20] MEDS: DOCUSATE SODIUM 100 MG CAPSULE PO SCH ×3 (08:37→20:56)
[2020-02-20] MEDS: CHOLECALCIFEROL 1,000 UNIT TABLET PO SCH (08:38)
[2020-02-20] MEDS: HYDROCHLOROTHIAZIDE 12.5 MG CAPSULE PO SCH (08:38)
[2020-02-20] MEDS: ASPIRIN 325 MG TABLET PO SCH (08:38)
[2020-02-20] MEDS: PANTOPRAZOLE SODIUM 40 MG TABLET.DR PO SCH (08:38)
[2020-02-20] MEDS: LIOTHYRONINE SODIUM 25 MCG TABLET PO SCH (08:39)
[2020-02-20] MEDS: SULFAMETH/TRIMETH 800/160 MG TABLET PO SCH ×2 (08:39→17:20)
[2020-02-20] MEDS: LOSARTAN POTASSIUM 50 MG TABLET PO SCH (09:00)
[2020-02-20] MEDS: AMLODIPINE 5 MG TABLET PO SCH (09:00)
--- NOTE | 2020-02-20 09:00 | NUR ---
BP initially was 93/48, elevated legs and retook BP 133/42. Gave Microzide, will hold Norvasc and Cozaar for now. Will recheck BP later
--- NOTE | 2020-02-20 11:38 | NUR ---
Patient currently having therapy in the gym
[2020-02-20 12:18] VITALS: BP 129/46
--- NOTE | 2020-02-20 12:19 | NUR ---
Rechecked BP 129/46, HR 72. Patient doesn't want to take AM BP meds at this time. Will recheck again
[2020-02-20] MEDS: ACETAMINOPHEN 325 MG TABLET PO PRN ×2 (13:28→21:47)
--- NOTE | 2020-02-20 15:30 | NUR ---
Gtube declogged, resumed feeding and gave medications. Hospitalist aware Addendum: 02/20/20 at 1848 by ADEN GARCIA RN wrong patient. notes above for another patient
[2020-02-20 16:27] VITALS: BP 100/58
--- NOTE | 2020-02-20 18:54 | NUR ---
Pt stable throughout shift AOx3. Pain management provided for left knee as ordered, with relief. Incision site clean and intact, dressing in place. BP meds not given since BP fluctuating on the low side throughout shift. Safety precautions maintained, no other issues at this time. Will endorse
[2020-02-20 20:13] VITALS: BP 158/47
[2020-02-20] MEDS: LEGATRIN PM PO SCH (20:56)
[2020-02-20] MEDS: HYDROCODONE/APAP 10-325 MG TABLET PO PRN (23:08)
[2020-02-21 04:57] VITALS: BP 144/54
--- NOTE | 2020-02-21 05:40 | NUR ---
Shift End Report: Slept good. No s/s of hypo/hyperglycemia.Medicated twice for complaint of pain with relief. No further complaint presented. No significant event reported all night. Continue care as planned.
[2020-02-21] MEDS: glipiZIDE 5 MG TABLET PO SCH ×2 (06:01→16:22)
[2020-02-21] MEDS: BLOOD SUGAR DIAGNOSTIC 1 EACH STRIP VI SCH ×4 (06:04→21:06)
[2020-02-21] MEDS: INSULIN REGULAR, HUMAN 300 UNIT/3 ML VIAL SQ PRN ×2 (08:20→16:24)
[2020-02-21] MEDS: AMLODIPINE 5 MG TABLET PO SCH (08:39)
[2020-02-21] MEDS: HYDROCHLOROTHIAZIDE 12.5 MG CAPSULE PO SCH (08:39)
[2020-02-21] MEDS: SULFAMETH/TRIMETH 800/160 MG TABLET PO SCH (08:39)
[2020-02-21] MEDS: PAROXETINE HCL 20 MG TABLET PO SCH (08:40)
[2020-02-21] MEDS: PANTOPRAZOLE SODIUM 40 MG TABLET.DR PO SCH (08:40)
[2020-02-21] MEDS: LIOTHYRONINE SODIUM 25 MCG TABLET PO SCH (08:40)
[2020-02-21] MEDS: HYDROCODONE/APAP 10-325 MG TABLET PO PRN ×2 (08:40→23:08)
[2020-02-21] MEDS: ASPIRIN 325 MG TABLET PO SCH (08:40)
[2020-02-21] MEDS: DOCUSATE SODIUM 100 MG CAPSULE PO SCH ×2 (08:40→21:05)
[2020-02-21] MEDS: CHOLECALCIFEROL 1,000 UNIT TABLET PO SCH (08:40)
[2020-02-21 08:57] VITALS: BP 138/54
[2020-02-21] MEDS: LOSARTAN POTASSIUM 50 MG TABLET PO SCH (09:00)
[2020-02-21] MEDS: NITROFURANTOIN/NITROFURAN MAC 100 MG CAPSULE PO SCH ×2 (11:31→21:05)
[2020-02-21 11:36] VITALS: BP 97/52
[2020-02-21 15:19] VITALS: BP 133/55
--- NOTE | 2020-02-21 16:07 | NUR ---
QUINN spoke with patient. Pt states she has been ordering outside food and eating well. Prefers to eat food from outside. No recommendation for Glucerna ONS BID. Addendum: 02/21/20 at [address] Amended: Links added.
--- NOTE | 2020-02-21 20:02 | NUR ---
Pt stable throughout shift. slept intermittently throughout the day. Held Losartan 100mg d/t fluctuating BP, mostly on the lower side. Not in any acute distress. Assisted with grooming today. Safety precautions in place
[2020-02-21 20:44] VITALS: BP 127/52
[2020-02-21] MEDS: ACETAMINOPHEN 325 MG TABLET PO PRN (21:05)
[2020-02-21] MEDS: LEGATRIN PM PO SCH (21:05)
[2020-02-21] MEDS: INSULIN REGULAR, HUMAN 300 UNITS/3 ML VIAL SQ PRN (21:07)
--- NOTE | 2020-02-21 21:30 | NUR ---
Received pt lying in bed watching TV. Vitals WNL No signs and symptoms of distress noted. complaint of discomfort request tylenol, administered. Axox3-4, makes needs known. Accucheck 227, per sliding scale administered 4 units. All due medication administered as ordered. Incision site intact and dry, no drainage, o s/s of infection noted. All needs attended, kept clean dy and comfortable. Safety measures maintained. Call light and all personal items within reach. Will monitor through the night.
--- NOTE | 2020-02-21 23:30 | NUR ---
Pt complaint of 6/10 pain requested norco, administered per patient request will continue to monitor.
[2020-02-22 04:35] VITALS: BP 137/51
[2020-02-22] MEDS: glipiZIDE 5 MG TABLET PO SCH (06:17)
[2020-02-22] MEDS: BLOOD SUGAR DIAGNOSTIC 1 EACH STRIP VI SCH ×2 (06:24→11:22)
[2020-02-22 07:54] VITALS: BP 115/61
[2020-02-22] MEDS: INSULIN REGULAR, HUMAN 300 UNIT/3 ML VIAL SQ PRN (07:59)
[2020-02-22] MEDS: DOCUSATE SODIUM 100 MG CAPSULE PO SCH (08:00)
[2020-02-22] MEDS: ASPIRIN 325 MG TABLET PO SCH (08:01)
[2020-02-22] MEDS: CHOLECALCIFEROL 1,000 UNIT TABLET PO SCH (08:01)
[2020-02-22] MEDS: NITROFURANTOIN/NITROFURAN MAC 100 MG CAPSULE PO SCH (08:01)
[2020-02-22] MEDS: HYDROCHLOROTHIAZIDE 12.5 MG CAPSULE PO SCH (08:01)
[2020-02-22 08:02] VITALS: BP 115/61
[2020-02-22] MEDS: LOSARTAN POTASSIUM 50 MG TABLET PO SCH (08:02)
[2020-02-22] MEDS: PAROXETINE HCL 20 MG TABLET PO SCH (08:02)
[2020-02-22] MEDS: AMLODIPINE 5 MG TABLET PO SCH (08:02)
[2020-02-22] MEDS: LIOTHYRONINE SODIUM 25 MCG TABLET PO SCH (08:02)
[2020-02-22] MEDS: PANTOPRAZOLE SODIUM 40 MG TABLET.DR PO SCH (08:07)
[2020-02-22] MEDS: ACETAMINOPHEN 325 MG TABLET PO PRN (11:21)
--- NOTE | 2020-02-22 12:25 | NUR ---
patient discharged home, with [facility], instructions given to daughter and patient. daughter Rebeca and patient verbalized understanding of it, patient transferred to the van safely, belongings sent with patient, fww, wheelchair, and bedside commode. patient is in stable condition, ambulatory with fww. prescription given to patient, teaching provided regarding accucheck and insulin, recommended follow up with primary doctor for further instructions of insulin to manage at home, patient ate lunch before left. no distress noted, no IV access, ID band removed. Addendum: 02/22/20 at 1345 by REYNALDO LOPEZ RN, RN per daughter rebeca patient is going to see primary doctor for insulin management at home.
== END 2020-02-22 12:25 | disposition home health service (06) | DRG 560 ==
PROVIDERS: ADMIT Physical Medicine & Rehabilitation Pain Medicine; ATTEND Physical Medicine & Rehabilitation Pain Medicine
DX: S72.142D Displaced intertrochanteric fracture of left femur, subsequent encounter for closed fracture with routine healing (principal); D68.59 Other primary thrombophilia; E87.1 Hypo-osmolality and hyponatremia; W18.30XD Fall on same level, unspecified, subsequent encounter; I10 Essential (primary) hypertension; E78.5 Hyperlipidemia, unspecified; D64.9 Anemia, unspecified; E03.9 Hypothyroidism, unspecified; E11.65 Type 2 diabetes mellitus with hyperglycemia; F32.9 Major depressive disorder, single episode, unspecified; R11.0 Nausea; R26.9 Unspecified abnormalities of gait and mobility; Z88.1 Allergy status to other antibiotic agents; Z88.0 Allergy status to penicillin; Z88.8 Allergy status to other drugs, medicaments and biological substances
CPT/HCPCS: 36415; 73502; 83550; 83735; 84100; 84443; 85025; 87077; 87086; A4663; J1815; J3475; J8499; Q0163

== ENCOUNTER 2020-04-10 15:34 | Emergency (ER) | payer MEDICARE, BC ==
[~2020-04-10] VITALS: Ht 152.4 cm; Wt 46.7 kg
[~2020-04-10 15:34] MED LIST: AMLO-212 PO; ASPI-612 PO; CHOL10002 PO; LIOT25TA7 PO; LOSA1TAB42 PO; OMEP20TA20 PO; PARO-64 PO; UBID100T7 PO
[2020-04-10] MEDS: KETOROLAC TROMETHAMINE 15 MG INJ IM ONE (16:20)
[2020-04-10] MEDS ORDERED: KETOROLAC TROMETHAMINE 15 MG INJ ONE (16:21)
[2020-04-10 17:52] LABS: *BILIRUBIN,URIN NEGATIVE (NEGATIVE); *BLOOD, URINE NEGATIVE (NEGATIVE); *CLARITY,URINE CLEAR (CLEAR); *COLOR,URINE YELLOW (YELLOW); *KETONES,URINE NEGATIVE (NEGATIVE); LEUKOCYTE ESTERASE ,URINE NEGATIVE (NEGATIVE); NITRITE, URINE NEGATIVE (NEGATIVE); PH,URINE 8.5 (5.0-8.0); UGLUCOSE TRACE (NEGATIVE)
--- NOTE | 2020-04-10 18:30 | NUR ---
Patient discharged to home in stable condition. Written and verbal after care instructions given. Patient verbalizes understanding of instructions. Stressed follow up or return to ER for worsening s/s.
[2020-04-10 18:41] VITALS: BP 135/80
== END 2020-04-10 18:42 | disposition home or self-care (01) ==
LOC: ER 15:34
DX: M25.552 Pain in left hip (principal); S72.142D Displaced intertrochanteric fracture of left femur, subsequent encounter for closed fracture with routine healing; X58.XXXD Exposure to other specified factors, subsequent encounter; E03.9 Hypothyroidism, unspecified; I10 Essential (primary) hypertension; E11.9 Type 2 diabetes mellitus without complications; Z79.82 Long term (current) use of aspirin; Z79.899 Other long term (current) drug therapy
CPT/HCPCS: 73502; 87086; A4663; J1885

== ENCOUNTER 2020-11-24 11:53 | Inpatient (IN) | payer MEDICARE, BC ==
[~2020-11-24] VITALS: Ht 152.4 cm; Wt 49.9 kg
[2020-11-24 12:15] LABS: HEMATOCRIT 39.6 % (31.2-41.9); MEAN CORPUSCULAR HEMOGLOBIN 29.8 uug (24.7-32.8); MEAN CORPUSCULAR VOLUME 89.5 fL (75.5-95.3); PLATELET COUNT (AUTO) 327 K/uL (179-408)
[2020-11-24] MEDS ORDERED: IV NORMAL SALINE 1000 ML BAG IV ONE (12:15)
[2020-11-24 12:27] LABS: POTASSIUM 3.6 mmol/L (3.5-5.1)
[2020-11-24] MEDS ORDERED: MAGN400C PO (12:34)
[2020-11-24] MEDS ORDERED: LEG CRAMPS (12:34)
[2020-11-24] MEDS ORDERED: SLIDING SCALE (12:34)
[2020-11-24] MEDS ORDERED: CRAN500T3 PO (12:34)
[2020-11-24] MEDS ORDERED: ESTR42.5 VG (12:34)
[2020-11-24] MEDS ORDERED: FAMO20TA8 PO (12:34)
[2020-11-24] MEDS ORDERED: ACET-2154 PO (12:34)
[2020-11-24] MEDS ORDERED: ASCO500C18 PO (12:34)
[2020-11-24] MEDS ORDERED: LOPE-195 PO (12:34)
[2020-11-24] MEDS ORDERED: HUMALOG LISPRO (12:34)
[2020-11-24] MEDS ORDERED: [UNRECOGNIZED DRUG - OTHER] (12:34)
--- NOTE | 2020-11-24 12:35 | NUR ---
PT AND HIS FAMILY MEMBERS CAN NOT PROVIDE INFORMATION ABOUT LISPRO INSULIN DOSAGES, PT's SLIDING SCALE SCHEDULE, AND FLEX TOUCH INSULIN PEN DOSAGES.
[2020-11-24 12:42] LABS: BILIRUBIN,DIRECT 0.2 mg/dL (0.0-0.2); BILIRUBIN,TOTAL 0.5 mg/dL (0.2-1.0); TOTAL PROTEIN, SERUM 6.8 g/dL (6.4-8.2)
[2020-11-24] MEDS ORDERED: ONDANSETRON 4 MG/2 ML VIAL ONE (13:13)
[2020-11-24] MEDS ORDERED: INSULIN REGULAR, HUMAN 300 UNIT/3 ML VIAL ONE (13:13)
[2020-11-24] MEDS ORDERED: HYDROMORPHONE 1 MG/1 ML DISP.SYRIN ONE (13:13)
[2020-11-24] MEDS ORDERED: INSULIN REGULAR, HUMAN 300 UNIT/3 ML VIAL SQ ONE (13:15)
[2020-11-24] MEDS ORDERED: ONDANSETRON 4 MG/2 ML VIAL IV ONE (13:15)
[2020-11-24] MEDS ORDERED: HYDROMORPHONE 1 MG/1 ML DISP.SYRIN IV ONE (13:15)
[2020-11-24] MEDS ORDERED: DEXTROSE 50% 50 ML DISP.SYRIN IV PRN (13:30)
[2020-11-24 13:48] LABS: *BILIRUBIN,URIN NEGATIVE (NEGATIVE); *BLOOD, URINE NEGATIVE (NEGATIVE); *CLARITY,URINE CLEAR (CLEAR); *COLOR,URINE YELLOW (YELLOW); *KETONES,URINE NEGATIVE (NEGATIVE); *UROBILINOGEN,URINE 0.2 E.U./dl (NORMAL); LEUKOCYTE ESTERASE ,URINE NEGATIVE (NEGATIVE); NITRITE, URINE NEGATIVE (NEGATIVE); PH,URINE 8.5 (5.0-8.0); UGLUCOSE 3+ (NEGATIVE)
[2020-11-24] MEDS ORDERED: MAGNESIUM HYDROXIDE 30 ML LIQUID UDC PO PRN (14:00)
[2020-11-24] MEDS ORDERED: Z GUARD REMEDY PASTE 57 GM TUBE TOP PRN (14:00)
[2020-11-24] MEDS ORDERED: ONDANSETRON 4 MG/2 ML VIAL IV PRN (14:00)
[2020-11-24] MEDS ORDERED: LOPERAMIDE HCL 2 MG CAPSULE PO PRN (14:00)
--- NOTE | 2020-11-24 14:00 | NUR ---
ARRIVED ON FLOOR. ORIENTED TO SURROUNDINGS. PLACED ON TELEMETRY.
--- NOTE | 2020-11-24 14:00 | NUR ---
pt transfere to floor in stable condition. ptdaughter at bedside the whole er stay.
[2020-11-24 14:09] LABS: BACTERIA,URINE NONE SEEN /HPF (NONE SEEN); MUCUS,URINE FEW /LPF (0-FEW); RBC,URINE 0-3 /HPF (0-3); SQUAMOUS EPITHELIAL CELL,UR FEW /HPF (NONE SEEN); URINE AMORPHOUS PHOSPHATES FEW /HPF; WBC,URINE 0-3 /HPF (0-3)
[2020-11-24 15:00] VITALS: BP 115/58
[2020-11-24] MEDS: BLOOD SUGAR DIAGNOSTIC 1 EACH STRIP VI SCH ×2 (16:51→21:00)
[2020-11-24] MEDS: INSULIN REGULAR, HUMAN 300 UNIT/3 ML VIAL SQ PRN (16:54)
--- NOTE | 2020-11-24 17:47 | NUR ---
RECEIVED FROM ER. ALERT & ORIENTED X3. DAUGHTER AT BEDSIDE.
[2020-11-24 20:00] VITALS: BP 151/62
[2020-11-24] MEDS: PREMARIN VAGINAL VG SCH (20:22)
[2020-11-24] MEDS: DOCUSATE SODIUM 100 MG CAPSULE PO SCH ×2 (20:22→21:00)
[2020-11-24] MEDS: IV 1/2NS 1000 ML 1,000 ML IV PRN (20:22)
--- NOTE | 2020-11-24 20:30 | NUR ---
RECEIVED PATIENT AWAKE IN BED. A/O X3, VERY [place]. DENIES PAIN AT THIS TIME, STATED PAIN IS PRESENT WITH MOVEMENT. ON RA SATING 97%. IVF STARTED TO LEFT AC #20 GAUGE. INFUSING WELL. VS WNL. AFEBRILE. ON TELE SR. RESTREPO INTACT AND PATENT, DRAINING CLEAR, YELLOW URINE. BED ALARM ON. CALL LIGHT IN REACH. ALL NEEDS ATTENDED. WILL CONTINUE TO MONITOR AND ASSESS.
[2020-11-24] MEDS: HYDROMORPHONE 1 MG/1 ML DISP.SYRIN IV PRN (20:43)
[2020-11-24] MEDS: CRAMPS PO PRN (21:28)
--- NOTE | 2020-11-25 00:05 | NUR ---
PATIENT HAS FEVER OF 101.0. CALLED OUT TO [facility] FOR FURTHER ORDERS.
[2020-11-25 00:10] VITALS: BP 140/62
[2020-11-25] MEDS ORDERED: CLONIDINE HCL 0.1 MG TABLET PO PRN (00:15)
[2020-11-25] MEDS: ACETAMINOPHEN 325 MG TABLET PO PRN ×2 (00:28→20:08)
--- NOTE | 2020-11-25 00:30 | NUR ---
PATIENT GIVEN TYLENOL 650MG PO PRN AND BLOOD CULTURES X2 SETS DONE. WILL CONTINUE TO MONITOR AND RE-ASSESS TEMPERATURE.
[2020-11-25 04:08] VITALS: BP 119/67
[2020-11-25] MEDS: PANTOPRAZOLE SODIUM 40 MG TABLET.DR PO SCH (06:06)
[2020-11-25] MEDS: BLOOD SUGAR DIAGNOSTIC 1 EACH STRIP VI SCH ×4 (06:31→20:08)
--- NOTE | 2020-11-25 06:46 | NUR ---
patient asleep in bed. slept well throughout the night. on tele sr.
[2020-11-25 06:50] LABS: HEMATOCRIT 34.5 % (31.2-41.9); MEAN CORPUSCULAR HEMOGLOBIN 30.2 uug (24.7-32.8); MEAN CORPUSCULAR VOLUME 90.5 fL (75.5-95.3); PLATELET COUNT (AUTO) 260 K/uL (179-408)
[2020-11-25 06:56] LABS: ALANINE AMINOTRANSFERASE 26 U/L (14-59); ALKALINE PHOSPHATASE 98 U/L (50-136); ASPARTATE AMINOTRANSFERASE 17 U/L (15-37); BILIRUBIN,TOTAL 0.9 mg/dL (0.2-1.0); CARBON DIOXIDE 22 mmol/L (21-32); CHLORIDE 104 mmol/L (98-107); CHOLESTEROL 149 mg/dL (<200); CREATININE 0.8 mg/dL (0.6-1.3); GLUCOSE 214 mg/dL (74-106); HDL CHOLESTEROL 63 mg/dL (40-60); MAGNESIUM 1.9 mg/dL (1.8-2.4); POTASSIUM 4.6 mmol/L (3.5-5.1); TOTAL PROTEIN, SERUM 5.8 g/dL (6.4-8.2); TRIGLYCERIDES 84 MG/DL (30-150); UREA NITROGEN, BLOOD 9 mg/dL (7-18)
[2020-11-25 07:07] LABS: THYROID STIMULATING HORMONE < 0.007 mIU/mL (0.358-3.740)
[2020-11-25] MEDS: INSULIN REGULAR, HUMAN 300 UNIT/3 ML VIAL SQ PRN ×3 (07:16→20:09)
[2020-11-25] MEDS: AMLODIPINE 5 MG TABLET PO SCH (08:02)
[2020-11-25] MEDS: MAGNESIUM OXIDE 400 MG TABLET PO SCH (08:02)
[2020-11-25] MEDS: ASCORBIC ACID 500 MG TABLET PO SCH (08:02)
[2020-11-25] MEDS: CHOLECALCIFEROL 1,000 UNIT TABLET PO SCH (08:02)
[2020-11-25] MEDS: HYDROCHLOROTHIAZIDE 12.5 MG CAPSULE PO SCH (08:03)
[2020-11-25] MEDS: LOSARTAN POTASSIUM 50 MG TABLET PO SCH (08:03)
[2020-11-25] MEDS: PAROXETINE HCL 20 MG TABLET PO SCH (08:04)
[2020-11-25] MEDS ORDERED: Medication Not On Formulary EA (Ubidecarenone (Coenzyme Q10) 100 MG) PO SCH (09:00)
[2020-11-25] MEDS ORDERED: Medication Not On Formulary EA (Losartan/Hydrochlorothiazide (Losartan-Hctz 100-12.5 Mg PO SCH (09:00)
[2020-11-25] MEDS ORDERED: Medication Not On Formulary EA (Cranberry Extract (Cranberry) 500 MG) PO SCH (09:00)
[2020-11-25] MEDS ORDERED: Medication Not On Formulary EA (Ascorbic Acid (Vitamin C) 1,000 MG) PO SCH (09:00)
[2020-11-25] MEDS: LIOTHYRONINE SODIUM 25 MCG TABLET PO SCH (09:29)
--- NOTE | 2020-11-25 10:00 | NUR ---
dr Page notified about the ortho consultation
[2020-11-25 11:04] VITALS: BP 117/57
[2020-11-25 11:09] VITALS: BP 117/57
[2020-11-25] MEDS: HYDROMORPHONE 1 MG/1 ML DISP.SYRIN IV PRN ×2 (11:57→23:18)
[2020-11-25] MEDS: IV 1/2NS 1000 ML 1,000 ML IV PRN (12:40)
--- NOTE | 2020-11-25 13:00 | NUR ---
family at bed side asking when the ortho dr will be here explain it to the family dr been notified
[2020-11-25 15:41] VITALS: BP 118/54
[2020-11-25] MEDS: DOCUSATE SODIUM 100 MG CAPSULE PO SCH (20:13)
[2020-11-25 20:14] VITALS: BP 124/51
[2020-11-25] MEDS ORDERED: SWABABLE VALVE TRANSFER SET EA MC ONE (20:37)
[2020-11-25] MEDS ORDERED: IOHEXOL 350 100 ML INFUS..BTL ONE (20:38)
[2020-11-25] MEDS ORDERED: IV NORMAL SALINE 250 ML IV ONE (20:38)
--- NOTE | 2020-11-25 21:12 | NUR ---
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 Dr. Knox was notified and he said that it was okay to proceed with Chest CTA.
[2020-11-26 00:16] VITALS: BP 118/45
[2020-11-26 04:39] VITALS: BP 151/70
--- NOTE | 2020-11-26 05:20 | NUR ---
Pt slept throughout the night. Denies SOB at this time. C/o non radiating chest pain 10/12, Nilam Santana notified with orders for stat EKG and stat Troponin. Labs still pending. No distress noted at this time. Per patient, chest pain has subsided. Safety and comfort provided. No other issues or concerns at this time, will endorse to day shift.
[2020-11-26] MEDS: PANTOPRAZOLE SODIUM 40 MG TABLET.DR PO SCH (06:17)
[2020-11-26] MEDS: BLOOD SUGAR DIAGNOSTIC 1 EACH STRIP VI SCH ×4 (06:48→20:15)
--- NOTE | 2020-11-26 07:00 | NUR ---
RECEIVED PATIENT AWAKE IN BED. A/O X3, VERY [place]. DENIES PAIN AT THIS TIME IVF STARTED TO LEFT AC #20 GAUGE. INFUSING WELL. VS WNL. AFEBRILE. ON TELE SR. RESTREPO INTACT AND PATENT, DRAINING CLEAR, YELLOW URINE. BED ALARM ON. CALL LIGHT IN REACH. ALL NEEDS ATTENDED. WILL CONTINUE TO MONITOR
[2020-11-26 07:23] LABS: HEMATOCRIT 36.2 % (31.2-41.9); MEAN CORPUSCULAR HEMOGLOBIN 30.2 uug (24.7-32.8); MEAN CORPUSCULAR VOLUME 89.9 fL (75.5-95.3); PLATELET COUNT (AUTO) 261 K/uL (179-408)
[2020-11-26] MEDS: INSULIN REGULAR, HUMAN 300 UNIT/3 ML VIAL SQ PRN ×4 (07:36→20:18)
[2020-11-26] MEDS: IV 1/2NS 1000 ML 1,000 ML IV PRN (07:46)
[2020-11-26 07:49] LABS: CREATININE 0.7 mg/dL (0.6-1.3); POTASSIUM 4.3 mmol/L (3.5-5.1)
[2020-11-26] MEDS: HYDROCHLOROTHIAZIDE 12.5 MG CAPSULE PO SCH (08:10)
[2020-11-26] MEDS: LIOTHYRONINE SODIUM 25 MCG TABLET PO SCH (08:10)
[2020-11-26] MEDS: ASCORBIC ACID 500 MG TABLET PO SCH (08:10)
[2020-11-26] MEDS: MAGNESIUM OXIDE 400 MG TABLET PO SCH (08:10)
[2020-11-26] MEDS: CHOLECALCIFEROL 1,000 UNIT TABLET PO SCH (08:10)
[2020-11-26] MEDS: AMLODIPINE 5 MG TABLET PO SCH (08:10)
[2020-11-26] MEDS: PAROXETINE HCL 20 MG TABLET PO SCH (08:10)
[2020-11-26] MEDS: LOSARTAN POTASSIUM 50 MG TABLET PO SCH (08:10)
[2020-11-26] MEDS: HYDROMORPHONE 1 MG/1 ML DISP.SYRIN IV PRN ×2 (09:12→22:07)
[2020-11-26 11:32] VITALS: BP 106/43
[2020-11-26 11:38] LABS: *BILIRUBIN,URIN NEGATIVE (NEGATIVE); *BLOOD, URINE NEGATIVE (NEGATIVE); *CLARITY,URINE CLEAR (CLEAR); *COLOR,URINE YELLOW (YELLOW); *KETONES,URINE NEGATIVE (NEGATIVE); *UROBILINOGEN,URINE 0.2 E.U./dl (NORMAL); LEUKOCYTE ESTERASE ,URINE TRACE (NEGATIVE); NITRITE, URINE NEGATIVE (NEGATIVE); PH,URINE 5.5 (5.0-8.0); UGLUCOSE 1+ (NEGATIVE)
[2020-11-26] MEDS ORDERED: levoFLOXacin 500 MG/D5W 500 MG in PREMIXED 1 EACH IV SCH (14:00)
[2020-11-26] MEDS: ASPIRIN 325 MG TABLET PO SCH (14:33)
[2020-11-26 15:23] VITALS: BP 110/88
[2020-11-26 17:47] LABS: RBC,URINE 0-3 /HPF (0-3)
[2020-11-26 17:48] LABS: BACTERIA,URINE RARE /HPF (NONE SEEN); SQUAMOUS EPITHELIAL CELL,UR FEW /HPF (NONE SEEN)
[2020-11-26] MEDS: DOCUSATE SODIUM 100 MG CAPSULE PO SCH (20:02)
[2020-11-26 20:32] VITALS: BP 109/59
[2020-11-26] MEDS: CRAMPS PO PRN (22:31)
[2020-11-27 00:14] VITALS: BP 121/48
[2020-11-27] MEDS: IV 1/2NS 1000 ML 1,000 ML IV PRN ×2 (03:48→23:47)
[2020-11-27 04:38] VITALS: BP 115/62
[2020-11-27] MEDS: PANTOPRAZOLE SODIUM 40 MG TABLET.DR PO SCH (06:07)
[2020-11-27 06:12] LABS: MEAN CORPUSCULAR HEMOGLOBIN 30.2 uug (24.7-32.8); MEAN CORPUSCULAR VOLUME 89.2 fL (75.5-95.3); PLATELET COUNT (AUTO) 254 K/uL (179-408)
[2020-11-27] MEDS: BLOOD SUGAR DIAGNOSTIC 1 EACH STRIP VI SCH ×4 (06:32→22:33)
[2020-11-27 06:42] LABS: CREATININE 0.8 mg/dL (0.6-1.3); POTASSIUM 4.3 mmol/L (3.5-5.1)
--- NOTE | 2020-11-27 07:15 | NUR ---
RECEIVED PATIENT A/O X3 [place]. IV HYDRATION ONGOING. RESTREPO CATHETER INTACT DRAINING CLEAR YELLOW URINE. NO HEMATURIA/SEDIMENTS NOTED. DENIES PAIN AT THIS TIME. ON O2 1 LPM VIA NC NO RESPIRATORY DISTRESS NOTED SPO2 96%. PATIENT IS COMFORTABLE. SAFETY PRECAUTIONS IN PLACE. WILL CONTINUE TO MONITOR.
[2020-11-27] MEDS: INSULIN REGULAR, HUMAN 300 UNIT/3 ML VIAL SQ PRN ×4 (07:46→22:41)
[2020-11-27] MEDS: LIOTHYRONINE SODIUM 25 MCG TABLET PO SCH (08:40)
[2020-11-27] MEDS: CHOLECALCIFEROL 1,000 UNIT TABLET PO SCH (08:40)
[2020-11-27] MEDS: MAGNESIUM OXIDE 400 MG TABLET PO SCH (08:40)
[2020-11-27] MEDS: ASCORBIC ACID 500 MG TABLET PO SCH (08:40)
[2020-11-27] MEDS: PAROXETINE HCL 20 MG TABLET PO SCH (08:40)
[2020-11-27] MEDS: ASPIRIN 325 MG TABLET PO SCH (08:40)
[2020-11-27] MEDS: LOSARTAN POTASSIUM 50 MG TABLET PO SCH (08:41)
[2020-11-27] MEDS: AMLODIPINE 5 MG TABLET PO SCH (08:42)
[2020-11-27] MEDS: HYDROCHLOROTHIAZIDE 12.5 MG CAPSULE PO SCH (08:46)
[2020-11-27] MEDS: ACETAMINOPHEN 325 MG TABLET PO PRN (08:56)
[2020-11-27] MEDS: METOPROLOL TARTRATE 25 MG TABLET PO SCH ×2 (11:03→21:00)
--- NOTE | 2020-11-27 11:09 | NUR ---
RELAYED TROPONIN 0.[address] WHITE WITH ORDER TO GO AHEAD WITH CTA AT [facility]. PATIENT AWARE.
[2020-11-27 12:00] VITALS: BP 137/68
--- NOTE | 2020-11-27 12:38 | NUR ---
PER CM UNABLE TO DO CARDIAC CTA TODAY D/T FULL CAPACITY. SHE WILL SCHEDULE FOR TOMORROW MORNING. DR. WHITE MADE AWARE AND SAID IT'S OK. PATIENT IS AWARE AND AGREED.
--- NOTE | 2020-11-27 14:05 | NUR ---
SPOKE WITH FRANCY AT [facility] AND SCHEDULED CTA FOR TOMORROW 6:45AM. [facility] WILL ARRANGE TRANSPORTATION FOR 5AM. PATIENT MADE AWARE. DR. WHITE AWARE.
[2020-11-27] MEDS: LEVOFLOXACIN/D5W 250 MG in PREMIX 1 EA IV SCH (14:24)
[2020-11-27 16:00] VITALS: BP 126/48
--- NOTE | 2020-11-27 17:00 | NUR ---
CTA CARDIAC SCHEDULED FOR 10AM TOMORROW. CM ARRANGED FOR AMBULANCE TO [facility] AT 8AM. PATIENT AND DTR ARE AWARE.
--- NOTE | 2020-11-27 19:00 | NUR ---
RECD PT IN BED,RESTING QUIETLY, NO ACUTE DISTRESS NOTED,IV SITE ON RIGHT FOREARM PATENT AND INTACT,FOR CTA CHEST IN AM,PT VERY ANXIOUS GOINT TO JUDD MAY, REASSURANCE AND ACTIVE LISTENING PROVIDED.
--- NOTE | 2020-11-27 19:27 | NUR ---
PATIENT ALERT AND ORIENTED X4. REASSURED PATIENT ABOUT CTA TOMORROW. PATIENT CALMED DOWN. RESTREPO CATHETER INTACT AND DRAINING CLEAR YELLOW URINE. IV HYDRATION ONGOING AND TOLERATED. DENIES PAIN AT THIS TIME. NO ACUTE DISTRESS. ENDORSED ACCORDINGLY.
[2020-11-27] MEDS: HYDROMORPHONE 1 MG/1 ML DISP.SYRIN IV PRN (20:27)
[2020-11-27] MEDS: PREMARIN VAGINAL VG SCH (21:00)
[2020-11-27 21:27] VITALS: BP 145/59
[2020-11-27] MEDS: ATORVASTATIN 40 MG TABLET PO SCH (22:28)
[2020-11-27] MEDS: DOCUSATE SODIUM 100 MG CAPSULE PO SCH (22:29)
--- NOTE | 2020-11-27 23:00 | NUR ---
ACCUCHECK AT HS 223, COVERED PER SLIDING SCALE, NO DIABETIC CRISES NOTED.STILL ON TELE SR 68.DUE MEDS GIVEN, LENGTHY CONVERSATION WITH PT'S DAUGHTER REGARDING MEDICATIONS,PT DOESN'T RECALL SOME OF THE NEW MEDS THAT ARE ORDERED HERE AT [facility]/NO CAFFEINE THE WHOLE NITE. KEPT WARM AND COMFORTABLE.
[2020-11-27] MEDS: CRAMPS PO PRN (23:22)
[2020-11-28 00:38] VITALS: BP 141/51
[2020-11-28 04:00] VITALS: BP 142/54
[2020-11-28] MEDS: ACETAMINOPHEN 325 MG TABLET PO PRN ×3 (04:52→21:43)
--- NOTE | 2020-11-28 05:00 | NUR ---
SLEPT ST SHORT INTERVALS,CALL LITE W/I REACH.
[2020-11-28 06:37] LABS: HEMATOCRIT 32.9 % (31.2-41.9); MEAN CORPUSCULAR HEMOGLOBIN 30.5 uug (24.7-32.8); MEAN CORPUSCULAR VOLUME 88.8 fL (75.5-95.3); PLATELET COUNT (AUTO) 322 K/uL (179-408)
[2020-11-28 06:54] LABS: CREATININE 0.9 mg/dL (0.6-1.3); POTASSIUM 3.6 mmol/L (3.5-5.1)
[2020-11-28] MEDS: PANTOPRAZOLE SODIUM 40 MG TABLET.DR PO SCH (07:23)
[2020-11-28] MEDS: BLOOD SUGAR DIAGNOSTIC 1 EACH STRIP VI SCH ×4 (07:28→20:35)
[2020-11-28] MEDS: INSULIN REGULAR, HUMAN 300 UNIT/3 ML VIAL SQ PRN ×2 (07:45→16:03)
[2020-11-28] MEDS: ASPIRIN 81 MG TAB.CHEW PO SCH (08:16)
[2020-11-28] MEDS: LOSARTAN POTASSIUM 50 MG TABLET PO SCH (08:16)
[2020-11-28] MEDS: PAROXETINE HCL 20 MG TABLET PO SCH (08:16)
[2020-11-28] MEDS: CHOLECALCIFEROL 1,000 UNIT TABLET PO SCH (08:16)
[2020-11-28] MEDS: MAGNESIUM OXIDE 400 MG TABLET PO SCH (08:16)
[2020-11-28] MEDS: ASCORBIC ACID 500 MG TABLET PO SCH (08:16)
[2020-11-28] MEDS: METOPROLOL TARTRATE 25 MG TABLET PO SCH ×2 (08:16→20:02)
[2020-11-28] MEDS: LIOTHYRONINE SODIUM 25 MCG TABLET PO SCH (08:16)
[2020-11-28] MEDS ORDERED: ASPIRIN 325 MG TABLET PO SCH (09:00)
[2020-11-28] MEDS: HYDROMORPHONE 1 MG/1 ML DISP.SYRIN IV PRN (09:04)
[2020-11-28 11:57] VITALS: BP 102/68
[2020-11-28] MEDS: LEVOFLOXACIN/D5W 250 MG in PREMIX 1 EA IV SCH (13:15)
[2020-11-28 16:02] VITALS: BP 119/61
[2020-11-28] MEDS: GLUCERNA SHAKE VANILLA 237 ML CAN PO SCH (17:35)
[2020-11-28] MEDS: ATORVASTATIN 40 MG TABLET PO SCH (20:01)
[2020-11-28] MEDS: DOCUSATE SODIUM 100 MG CAPSULE PO SCH (20:01)
[2020-11-28 20:10] VITALS: BP 130/43
[2020-11-28] MEDS: IV 1/2NS 1000 ML 1,000 ML IV PRN (21:54)
[2020-11-29 00:05] VITALS: BP 127/37
[2020-11-29] MEDS: CRAMPS PO PRN (00:41)
[2020-11-29] MEDS: HYDROMORPHONE 1 MG/1 ML DISP.SYRIN IV PRN (01:02)
[2020-11-29 04:10] VITALS: BP 105/38
[2020-11-29] MEDS: PANTOPRAZOLE SODIUM 40 MG TABLET.DR PO SCH (06:00)
[2020-11-29] MEDS: BLOOD SUGAR DIAGNOSTIC 1 EACH STRIP VI SCH ×3 (06:09→16:34)
[2020-11-29 06:25] LABS: HEMATOCRIT 32.3 % (31.2-41.9); MEAN CORPUSCULAR HEMOGLOBIN 30.5 uug (24.7-32.8); MEAN CORPUSCULAR VOLUME 89.8 fL (75.5-95.3); PLATELET COUNT (AUTO) 336 K/uL (179-408)
[2020-11-29 06:56] LABS: CREATININE 0.9 mg/dL (0.6-1.3); POTASSIUM 3.9 mmol/L (3.5-5.1)
--- NOTE | 2020-11-29 07:00 | NUR ---
RECEIVED RESTING BUT EASILY AROUSABLE. NO ACUTE DISTRESS ON ROOM AIR. DENIES PAIN OR SOB. IV INTACT AND HYDRATION ONGOING. RESTREPO CATHETER INTACT DRAINING YELLOW URINE. SAFETY AND FALL MEASURES IN PLACE. WILL CONTINUE TO MONITOR.
[2020-11-29] MEDS: INSULIN REGULAR, HUMAN 300 UNIT/3 ML VIAL SQ PRN ×3 (07:52→16:39)
[2020-11-29 08:50] VITALS: BP 128/49
[2020-11-29] MEDS: PAROXETINE HCL 20 MG TABLET PO SCH (08:52)
[2020-11-29] MEDS: CHOLECALCIFEROL 1,000 UNIT TABLET PO SCH (08:52)
[2020-11-29] MEDS: ASPIRIN 81 MG TAB.CHEW PO SCH (08:52)
[2020-11-29] MEDS: MAGNESIUM OXIDE 400 MG TABLET PO SCH (08:53)
[2020-11-29] MEDS: LIOTHYRONINE SODIUM 25 MCG TABLET PO SCH (08:53)
[2020-11-29] MEDS: ASCORBIC ACID 500 MG TABLET PO SCH (08:53)
[2020-11-29] MEDS: METOPROLOL TARTRATE 25 MG TABLET PO SCH (08:53)
[2020-11-29] MEDS: GLUCERNA SHAKE VANILLA 237 ML CAN PO SCH ×3 (08:54→17:23)
[2020-11-29] MEDS: LOSARTAN POTASSIUM 50 MG TABLET PO SCH (09:00)
--- NOTE | 2020-11-29 09:00 | NUR ---
bp 128/[address] Biswas hold Losartan for now. May give later if sbp>135.
[2020-11-29] MEDS: ACETAMINOPHEN 325 MG TABLET PO PRN ×2 (09:34→17:22)
[2020-11-29 11:57] VITALS: BP 131/41
[2020-11-29] MEDS ORDERED: levoFLOXacin 250 MG TABLET PO SCH (14:00)
[2020-11-29 16:00] VITALS: BP 93/48
[2020-11-29] MEDS ORDERED: DOCU100C36 PO (16:37)
[2020-11-29] MEDS ORDERED: ACET325T53 PO (16:37)
[2020-11-29] MEDS ORDERED: PARO20TA7 PO (16:37)
[2020-11-29] MEDS ORDERED: LOSA50TA3 PO (16:37)
[2020-11-29] MEDS ORDERED: CHOL100062 PO (16:37)
[2020-11-29] MEDS ORDERED: LOPE2CAP40 PO (16:37)
[2020-11-29] MEDS ORDERED: ASPI81TA31 PO (16:37)
[2020-11-29] MEDS ORDERED: METO25TA6 PO (16:37)
[2020-11-29] MEDS ORDERED: CLON0.1T PO (16:37)
[2020-11-29] MEDS ORDERED: LIOT25TA7 PO (16:37)
[2020-11-29] MEDS ORDERED: ASCO500T21 PO (16:37)
[2020-11-29] MEDS ORDERED: PANT40TA2 PO (16:37)
[2020-11-29] MEDS ORDERED: ATOR40TA PO (16:37)
[2020-11-29] MEDS ORDERED: NUT.237L28 PO (16:37)
[2020-11-29] MEDS ORDERED: TEMAZEPAM 7.5 MG CAPSULE PO PRN (16:45)
--- NOTE | 2020-11-29 18:38 | NUR ---
PATIENT TO BE DISCHARGED TO ARU. ALERT, ORIENTED X4. COMFORTABLE ON ROOM AIR. DENIES SOB, CHEST PAIN. MEDICATION AND FOLLOW UP INSTRUCTIONS GIVEN TO THE PATIENT. PATIENT VERBALIZED UNDERSTANDING. PER [employer] SUPERVISOR CLIFFORD, MAY REMOVE RESTREPO CATHETER. PATIENT IS AGREEABLE. ALL BELONGINGS VERIFIED WITH PATIENT. WILL ENDORSE ACCORDINGLY.
--- NOTE | 2020-11-29 18:46 | NUR ---
Removed shah catheter per MD order, tolerated well with 200cc output, clear yellow. Denies any pain/discomfort. No signs of any distress. All needs attended. Patient is for discharged to ARU with stable condition.
[2020-11-29 20:10] VITALS: BP 137/50
[2020-11-30 04:10] VITALS: BP 139/47
== END 2020-11-29 18:50 | DRG 535 ==
LOC: ER 11:53 → TELE3 13:51 → MEDSURG3 11-29 11:01
PROVIDERS: ADMIT Nurse Practitioner Acute Care; ATTEND Nurse Practitioner Acute Care
DX: S32.492A Other specified fracture of left acetabulum, initial encounter for closed fracture (principal); G93.41 Metabolic encephalopathy; I21.A1 Myocardial infarction type 2; S32.592A Other specified fracture of left pubis, initial encounter for closed fracture; D68.59 Other primary thrombophilia; N39.0 Urinary tract infection, site not specified; W18.30XA Fall on same level, unspecified, initial encounter; Y92.039 Unspecified place in apartment as the place of occurrence of the external cause; Z74.09 Other reduced mobility; E03.9 Hypothyroidism, unspecified; E11.65 Type 2 diabetes mellitus with hyperglycemia; Z79.4 Long term (current) use of insulin; Z88.5 Allergy status to narcotic agent; Z88.0 Allergy status to penicillin; Z88.8 Allergy status to other drugs, medicaments and biological substances; F32.9 Major depressive disorder, single episode, unspecified; I10 Essential (primary) hypertension; Z20.822 Contact with and (suspected) exposure to COVID-19; Z79.82 Long term (current) use of aspirin; D72.829 Elevated white blood cell count, unspecified; Z96.642 Presence of left artificial hip joint
CPT/HCPCS: 36415; 51702; 70030-TC; 71045; 71275; 72192; 83690; 83735; 84100; 84443; 85025; 85730; 87040; 87086; 93005; 93307; 97161; A4663; G0378; J1170; J1815; J1956; J2405; J3490; J7030; J7050; J8499; Q9967

== ENCOUNTER 2020-11-29 15:55 | Inpatient (IN) | payer MEDICARE, BC ==
[~2020-11-29] VITALS: Ht 157.5 cm; Wt 50.8 kg
[~2020-11-29 15:55] MED LIST changes: +ACET-2154 PO; +ASCO500C18 PO; +CRAN500T3 PO; +ESTR42.5 VG; +FAMO20TA8 PO; +HUMALOG LISPRO; +LEG CRAMPS; +LOPE-195 PO; +MAGN400C PO; +SLIDING SCALE; +[UNRECOGNIZED DRUG - OTHER]
[2020-11-29] MEDS ORDERED: LOSA50TA3 PO (16:37)
[2020-11-29] MEDS ORDERED: CLON0.1T PO (16:37)
[2020-11-29] MEDS ORDERED: LIOT25TA7 PO (16:37)
[2020-11-29] MEDS ORDERED: ATOR40TA PO (16:37)
[2020-11-29] MEDS ORDERED: METO25TA6 PO (16:37)
[2020-11-29] MEDS ORDERED: ACET325T53 PO (16:37)
[2020-11-29] MEDS ORDERED: ASCO500T21 PO (16:37)
[2020-11-29] MEDS ORDERED: ASPI81TA31 PO (16:37)
[2020-11-29] MEDS ORDERED: PARO20TA7 PO (16:37)
[2020-11-29] MEDS ORDERED: DOCU100C36 PO (16:37)
[2020-11-29] MEDS ORDERED: CHOL100062 PO (16:37)
[2020-11-29] MEDS ORDERED: LOPE2CAP40 PO (16:37)
[2020-11-29] MEDS ORDERED: NUT.237L28 PO (16:37)
[2020-11-29] MEDS ORDERED: PANT40TA2 PO (16:37)
--- NOTE | 2020-11-29 19:39 | NUR ---
Received admission report from Am nurse. Patient awake, alert and verbally responsive. Denies any pain/discomforts at this time. Enjoyed watching TV while doing the admission assessment. No s/s of respiratory distress. Routine admission care done. Plan of care initiated.
[2020-11-29 20:00] VITALS: BP 137/50
[2020-11-29] MEDS ORDERED: ACETAMINOPHEN 325 MG TABLET PO PRN (20:00)
[2020-11-29] MEDS ORDERED: CLONIDINE HCL 0.1 MG TABLET PO PRN (20:00)
[2020-11-29] MEDS ORDERED: Z GUARD REMEDY PASTE 57 GM TUBE TOP PRN (20:00)
[2020-11-29] MEDS: DOCUSATE SODIUM 100 MG CAPSULE PO SCH (21:37)
[2020-11-29] MEDS: METOPROLOL TARTRATE 25 MG TABLET PO SCH (21:38)
[2020-11-29] MEDS: ATORVASTATIN 40 MG TABLET PO SCH (21:38)
[2020-11-29] MEDS: ACETAMINOPHEN 325 MG TABLET PO PRN (22:47)
[2020-11-30] MEDS: OXYCODONE/APAP 5-325 MG TABLET PO PRN ×4 (00:36→21:48)
[2020-11-30 04:43] VITALS: BP 139/47
[2020-11-30] MEDS: PANTOPRAZOLE SODIUM 40 MG TABLET.DR PO SCH (06:01)
--- NOTE | 2020-11-30 06:41 | NUR ---
Shift End Report: VS stable. Slept in between care. Medicated twice with Percocet and Tylenol 650 mg as ordered and as needed for pain with help. No further complaint presented. All needs attended and met. No significant event reported all night. Continue current rehab plan of care.
[2020-11-30 08:03] VITALS: BP 130/46
[2020-11-30] MEDS: HYDROCHLOROTHIAZIDE 12.5 MG CAPSULE PO SCH (08:40)
[2020-11-30] MEDS: ASCORBIC ACID 500 MG TABLET PO SCH (08:40)
[2020-11-30] MEDS: AMLODIPINE 5 MG TABLET PO SCH (08:41)
[2020-11-30] MEDS: MAGNESIUM OXIDE 400 MG TABLET PO SCH (08:41)
[2020-11-30] MEDS: CHOLECALCIFEROL 1,000 UNIT TABLET PO SCH (08:41)
[2020-11-30] MEDS: METOPROLOL TARTRATE 25 MG TABLET PO SCH ×3 (08:41→20:18)
[2020-11-30] MEDS: LOSARTAN POTASSIUM 50 MG TABLET PO SCH (08:42)
[2020-11-30] MEDS: PAROXETINE HCL 20 MG TABLET PO SCH (08:42)
[2020-11-30] MEDS: ASPIRIN 81 MG TAB.CHEW PO SCH (08:42)
[2020-11-30] MEDS: GLUCERNA SHAKE VANILLA 237 ML CAN PO SCH ×3 (08:44→16:10)
[2020-11-30] MEDS ORDERED: ASCORBIC ACID 500 MG TABLET PO SCH (09:00)
[2020-11-30] MEDS ORDERED: FAMOTIDINE 20 MG TABLET PO SCH (09:00)
[2020-11-30] MEDS ORDERED: LOSARTAN POTASSIUM 50 MG TABLET PO SCH (09:00)
[2020-11-30] MEDS ORDERED: Medication Not On Formulary EA (Losartan/Hydrochlorothiazide (Losartan-Hctz 100-12.5 Mg PO SCH (09:00)
[2020-11-30] MEDS ORDERED: Medication Not On Formulary EA (Cranberry Extract (Cranberry) 500 MG) PO SCH (09:00)
[2020-11-30] MEDS ORDERED: PAROXETINE HCL 20 MG TABLET PO SCH (09:00)
[2020-11-30] MEDS: LIOTHYRONINE SODIUM 25 MCG TABLET PO SCH (09:32)
[2020-11-30] MEDS ORDERED: DEXTROSE 50% 50 ML DISP.SYRIN IV PRN (10:15)
[2020-11-30] MEDS: INSULIN REGULAR, HUMAN 300 UNIT/3 ML VIAL SQ PRN ×3 (10:58→20:33)
[2020-11-30] MEDS: BLOOD SUGAR DIAGNOSTIC 1 EACH STRIP VI SCH ×3 (10:58→20:26)
[2020-11-30 15:35] VITALS: BP 129/49
[2020-11-30 20:00] VITALS: BP 132/62
[2020-11-30] MEDS: DOCUSATE SODIUM 100 MG CAPSULE PO SCH (20:17)
[2020-11-30] MEDS: ATORVASTATIN 40 MG TABLET PO SCH (20:17)
--- NOTE | 2020-11-30 21:35 | NUR ---
Received patient on bed talking on phone with no respiratory distress noted. A/Ox4, able to make needs known. Denies pain and discomfort at this time. Saline lock on R forearm intact and patent. All due medications given on time and accucheck done with sliding scale also given. Assisted in turning and repositioning. Call light placed within reach. Frequent visual checks done. Will continue to monitor.
[2020-12-01 04:00] VITALS: BP 112/60
[2020-12-01] MEDS: ACETAMINOPHEN 325 MG TABLET PO PRN (04:05)
--- NOTE | 2020-12-01 06:30 | NUR ---
Patient slept intermittently throughout the night. A/Ox4, able to make needs known. Medicated pain x2, noted effective. Saline lock on R forearm intact and patent. All due medications given on time and accucheck done BS 323. Assisted in turning and repositioning. Call light placed within reach. Frequent visual checks done. Will endorse for continuity of care.
[2020-12-01] MEDS: BLOOD SUGAR DIAGNOSTIC 1 EACH STRIP VI SCH ×4 (06:32→20:37)
[2020-12-01] MEDS: PANTOPRAZOLE SODIUM 40 MG TABLET.DR PO SCH (06:32)
[2020-12-01 07:38] VITALS: BP 122/42
[2020-12-01] MEDS: ASPIRIN 81 MG TAB.CHEW PO SCH (08:42)
[2020-12-01] MEDS: MAGNESIUM OXIDE 400 MG TABLET PO SCH (08:42)
[2020-12-01] MEDS: ASCORBIC ACID 500 MG TABLET PO SCH (08:44)
[2020-12-01] MEDS: AMLODIPINE 5 MG TABLET PO SCH (08:44)
[2020-12-01] MEDS: CHOLECALCIFEROL 1,000 UNIT TABLET PO SCH (08:44)
[2020-12-01] MEDS: HYDROCHLOROTHIAZIDE 12.5 MG CAPSULE PO SCH (08:45)
[2020-12-01] MEDS: LIOTHYRONINE SODIUM 25 MCG TABLET PO SCH (08:46)
[2020-12-01] MEDS: GLUCERNA SHAKE VANILLA 237 ML CAN PO SCH ×3 (08:48→17:03)
[2020-12-01] MEDS: PAROXETINE HCL 20 MG TABLET PO SCH (08:51)
[2020-12-01] MEDS: LOSARTAN POTASSIUM 50 MG TABLET PO SCH (09:00)
[2020-12-01] MEDS: METOPROLOL TARTRATE 25 MG TABLET PO SCH ×2 (09:00→20:40)
[2020-12-01] MEDS: INSULIN REGULAR, HUMAN 300 UNIT/3 ML VIAL SQ PRN ×4 (09:06→20:43)
[2020-12-01] MEDS: OXYCODONE/APAP 5-325 MG TABLET PO PRN ×2 (11:58→20:42)
[2020-12-01 15:41] VITALS: BP 113/32
--- NOTE | 2020-12-01 18:36 | NUR ---
hep-loc removed. Intact. 20g. Tolerated well.
[2020-12-01 20:00] VITALS: BP 142/50
[2020-12-01] MEDS: ATORVASTATIN 40 MG TABLET PO SCH (20:40)
[2020-12-01] MEDS: DOCUSATE SODIUM 100 MG CAPSULE PO SCH (20:41)
[2020-12-01] MEDS: PREMARIN XX SCH (20:49)
--- NOTE | 2020-12-01 20:55 | NUR ---
Patient awake verbally responsive.On Ra.No s/s of distress noted.C/o pain left hip.Medicated with Percocet with good effect. SAfety measures in place. Call light with in reach.VSS
[2020-12-02] MEDS: ACETAMINOPHEN 325 MG TABLET PO PRN (02:37)
[2020-12-02 04:00] VITALS: BP 124/50
[2020-12-02] MEDS: PANTOPRAZOLE SODIUM 40 MG TABLET.DR PO SCH (06:11)
[2020-12-02] MEDS: BLOOD SUGAR DIAGNOSTIC 1 EACH STRIP VI SCH ×4 (06:40→20:15)
[2020-12-02 08:00] VITALS: BP 143/50
[2020-12-02] MEDS: METOPROLOL TARTRATE 25 MG TABLET PO SCH ×2 (09:00→20:10)
[2020-12-02] MEDS: HYDROCHLOROTHIAZIDE 12.5 MG CAPSULE PO SCH (09:00)
[2020-12-02] MEDS: OXYCODONE/APAP 5-325 MG TABLET PO PRN ×2 (09:30→21:17)
[2020-12-02] MEDS: ASPIRIN 81 MG TAB.CHEW PO SCH (09:31)
[2020-12-02] MEDS: CHOLECALCIFEROL 1,000 UNIT TABLET PO SCH (09:31)
[2020-12-02] MEDS: ASCORBIC ACID 500 MG TABLET PO SCH (09:31)
[2020-12-02] MEDS: MAGNESIUM OXIDE 400 MG TABLET PO SCH (09:31)
[2020-12-02] MEDS: AMLODIPINE 5 MG TABLET PO SCH (09:32)
[2020-12-02] MEDS: PAROXETINE HCL 20 MG TABLET PO SCH (09:32)
[2020-12-02] MEDS: LOSARTAN POTASSIUM 50 MG TABLET PO SCH (09:32)
[2020-12-02] MEDS: LIOTHYRONINE SODIUM 25 MCG TABLET PO SCH (09:35)
[2020-12-02] MEDS: GLUCERNA SHAKE VANILLA 237 ML CAN PO SCH ×3 (09:35→16:36)
[2020-12-02 12:00] VITALS: BP 126/48
[2020-12-02] MEDS: INSULIN REGULAR, HUMAN 300 UNIT/3 ML VIAL SQ PRN ×3 (12:15→20:16)
[2020-12-02 16:00] VITALS: BP 137/65
[2020-12-02 20:06] VITALS: BP 126/47
[2020-12-02] MEDS: DOCUSATE SODIUM 100 MG CAPSULE PO SCH (20:10)
[2020-12-02] MEDS: ATORVASTATIN 40 MG TABLET PO SCH (20:10)
[2020-12-02] MEDS: PREMARIN XX SCH (21:10)
[2020-12-03] MEDS: OXYCODONE/APAP 5-325 MG TABLET PO PRN ×3 (03:21→18:28)
[2020-12-03 04:06] VITALS: BP 148/52
[2020-12-03] MEDS: PANTOPRAZOLE SODIUM 40 MG TABLET.DR PO SCH (06:13)
[2020-12-03] MEDS: BLOOD SUGAR DIAGNOSTIC 1 EACH STRIP VI SCH ×4 (06:18→20:31)
[2020-12-03 08:00] VITALS: BP 139/58
[2020-12-03] MEDS: INSULIN REGULAR, HUMAN 300 UNIT/3 ML VIAL SQ PRN ×3 (08:27→20:32)
[2020-12-03] MEDS: HYDROCHLOROTHIAZIDE 12.5 MG CAPSULE PO SCH (09:00)
[2020-12-03] MEDS: LOSARTAN POTASSIUM 50 MG TABLET PO SCH (09:00)
[2020-12-03] MEDS: METOPROLOL TARTRATE 25 MG TABLET PO SCH ×2 (09:00→20:35)
[2020-12-03] MEDS: ASPIRIN 81 MG TAB.CHEW PO SCH (09:07)
[2020-12-03] MEDS: LIOTHYRONINE SODIUM 25 MCG TABLET PO SCH (09:08)
[2020-12-03] MEDS: ASCORBIC ACID 500 MG TABLET PO SCH (09:08)
[2020-12-03] MEDS: CHOLECALCIFEROL 1,000 UNIT TABLET PO SCH (09:08)
[2020-12-03] MEDS: AMLODIPINE 5 MG TABLET PO SCH (09:08)
[2020-12-03] MEDS: PAROXETINE HCL 20 MG TABLET PO SCH (09:08)
[2020-12-03] MEDS: MAGNESIUM OXIDE 400 MG TABLET PO SCH (09:09)
[2020-12-03] MEDS: GLUCERNA SHAKE VANILLA 237 ML CAN PO SCH ×3 (09:18→16:30)
[2020-12-03 12:00] VITALS: BP 151/49
[2020-12-03] MEDS: DOCUSATE SODIUM 100 MG CAPSULE PO SCH (20:23)
[2020-12-03] MEDS: ATORVASTATIN 40 MG TABLET PO SCH (20:24)
[2020-12-03] MEDS: ACETAMINOPHEN 325 MG TABLET PO PRN (20:48)
[2020-12-03 21:01] VITALS: BP 152/54
[2020-12-04] MEDS: OXYCODONE/APAP 5-325 MG TABLET PO PRN ×4 (01:09→22:52)
[2020-12-04 04:23] VITALS: BP 130/50
[2020-12-04] MEDS: PANTOPRAZOLE SODIUM 40 MG TABLET.DR PO SCH (06:32)
[2020-12-04 06:36] LABS: HEMATOCRIT 37.4 % (31.2-41.9); MEAN CORPUSCULAR HEMOGLOBIN 29.4 uug (24.7-32.8); MEAN CORPUSCULAR VOLUME 88.3 fL (75.5-95.3); PLATELET COUNT (AUTO) 519 K/uL (179-408)
[2020-12-04] MEDS: BLOOD SUGAR DIAGNOSTIC 1 EACH STRIP VI SCH ×4 (06:37→21:02)
[2020-12-04 06:57] LABS: BILIRUBIN,TOTAL 0.4 mg/dL (0.2-1.0); POTASSIUM 4.7 mmol/L (3.5-5.1); TOTAL PROTEIN, SERUM 6.3 g/dL (6.4-8.2)
[2020-12-04 07:30] VITALS: BP 129/45
[2020-12-04] MEDS: CHOLECALCIFEROL 1,000 UNIT TABLET PO SCH (08:44)
[2020-12-04] MEDS: ASPIRIN 81 MG TAB.CHEW PO SCH (08:45)
[2020-12-04] MEDS: ASCORBIC ACID 500 MG TABLET PO SCH (08:45)
[2020-12-04] MEDS: PAROXETINE HCL 20 MG TABLET PO SCH (08:45)
[2020-12-04] MEDS: MAGNESIUM OXIDE 400 MG TABLET PO SCH (08:47)
[2020-12-04] MEDS: AMLODIPINE 5 MG TABLET PO SCH (08:47)
[2020-12-04] MEDS: INSULIN REGULAR, HUMAN 300 UNIT/3 ML VIAL SQ PRN ×4 (08:50→21:05)
[2020-12-04] MEDS: LIOTHYRONINE SODIUM 25 MCG TABLET PO SCH (08:57)
[2020-12-04] MEDS: GLUCERNA SHAKE VANILLA 237 ML CAN PO SCH ×3 (09:00→17:17)
[2020-12-04] MEDS: LOSARTAN POTASSIUM 50 MG TABLET PO SCH (10:36)
[2020-12-04] MEDS: METOPROLOL TARTRATE 25 MG TABLET PO SCH ×2 (10:36→21:03)
[2020-12-04] MEDS: HYDROCHLOROTHIAZIDE 12.5 MG CAPSULE PO SCH (10:37)
[2020-12-04] MEDS: ACETAMINOPHEN 325 MG TABLET PO PRN ×2 (14:21→21:03)
[2020-12-04 15:55] VITALS: BP 128/41
[2020-12-04 20:03] VITALS: BP 108/76
[2020-12-04] MEDS: ATORVASTATIN 40 MG TABLET PO SCH (21:02)
[2020-12-04] MEDS: DOCUSATE SODIUM 100 MG CAPSULE PO SCH (21:03)
--- NOTE | 2020-12-04 23:24 | NUR ---
Patient received in bed, AxOx4 VSS. No acute distress noted on RA, no SOB noted. c/o of pain/ discomfort. Administered Tylenol and Percocet PRN. All due medications administered and tolerated well. BS 175, covered per sliding scale. Swallows pills whole. Skin intact. Pt is continent on bedpan, had BM x3. safety measures and fall precautions in place. Will continue to monitor.
[2020-12-05] MEDS: ACETAMINOPHEN 325 MG TABLET PO PRN ×2 (03:26→16:45)
[2020-12-05 04:06] VITALS: BP 104/41
[2020-12-05] MEDS: PANTOPRAZOLE SODIUM 40 MG TABLET.DR PO SCH (06:09)
[2020-12-05] MEDS: BLOOD SUGAR DIAGNOSTIC 1 EACH STRIP VI SCH ×4 (06:17→20:47)
[2020-12-05] MEDS: INSULIN REGULAR, HUMAN 300 UNIT/3 ML VIAL SQ PRN ×4 (07:42→20:50)
[2020-12-05] MEDS: OXYCODONE/APAP 5-325 MG TABLET PO PRN ×2 (08:00→20:56)
[2020-12-05] MEDS: ASPIRIN 81 MG TAB.CHEW PO SCH (08:00)
[2020-12-05] MEDS: PAROXETINE HCL 20 MG TABLET PO SCH (08:01)
[2020-12-05] MEDS: ASCORBIC ACID 500 MG TABLET PO SCH (08:01)
[2020-12-05] MEDS: MAGNESIUM OXIDE 400 MG TABLET PO SCH (08:01)
[2020-12-05] MEDS: LIOTHYRONINE SODIUM 25 MCG TABLET PO SCH (08:01)
[2020-12-05] MEDS: CHOLECALCIFEROL 1,000 UNIT TABLET PO SCH (08:01)
[2020-12-05] MEDS: GLUCERNA SHAKE VANILLA 237 ML CAN PO SCH ×3 (08:03→16:01)
[2020-12-05] MEDS: AMLODIPINE 5 MG TABLET PO SCH (08:08)
[2020-12-05] MEDS: METOPROLOL TARTRATE 25 MG TABLET PO SCH ×2 (08:08→20:41)
[2020-12-05] MEDS: LOSARTAN POTASSIUM 50 MG TABLET PO SCH (08:08)
[2020-12-05 09:31] VITALS: BP 136/54
[2020-12-05 14:44] LABS: *BILIRUBIN,URIN NEGATIVE (NEGATIVE); *BLOOD, URINE NEGATIVE (NEGATIVE); *CLARITY,URINE SLIGHTLY CLOUDY (CLEAR); *COLOR,URINE YELLOW (YELLOW); *KETONES,URINE NEGATIVE (NEGATIVE); LEUKOCYTE ESTERASE ,URINE 1+ (NEGATIVE); NITRITE, URINE NEGATIVE (NEGATIVE); PH,URINE 7.5 (5.0-8.0); UGLUCOSE NEGATIVE (NEGATIVE)
[2020-12-05 15:29] VITALS: BP 126/42
[2020-12-05 15:29] LABS: RBC,URINE 0-3 /HPF (0-3)
[2020-12-05 15:30] LABS: BACTERIA,URINE FEW /HPF (NONE SEEN); SQUAMOUS EPITHELIAL CELL,UR MODERATE /HPF (NONE SEEN); WBC,URINE 50-80 /HPF (0-3)
[2020-12-05 20:18] VITALS: BP 134/69
[2020-12-05] MEDS: DOCUSATE SODIUM 100 MG CAPSULE PO SCH (20:40)
[2020-12-05] MEDS: ATORVASTATIN 40 MG TABLET PO SCH (20:42)
[2020-12-05] MEDS: PREMARIN XX SCH (20:52)
--- NOTE | 2020-12-05 22:00 | NUR ---
AAO X4 Watching TV upon initial rounds. Needs attended. VSS. All due meds given. Accucheck 206 with 4 units humalog insulin given as coverage. Medicated with Percocet for hip pain. Relief noted. Kept comfortable. Voiding well in the bedpan.Fall precautions maintained. Call khan within reach. Siderails up for safety. No acute distress noted. Will monitor patient.
[2020-12-06 04:18] VITALS: BP 144/99
[2020-12-06] MEDS: PANTOPRAZOLE SODIUM 40 MG TABLET.DR PO SCH (06:13)
[2020-12-06] MEDS: BLOOD SUGAR DIAGNOSTIC 1 EACH STRIP VI SCH ×4 (06:39→20:38)
[2020-12-06] MEDS: INSULIN REGULAR, HUMAN 300 UNIT/3 ML VIAL SQ PRN ×4 (07:48→20:41)
[2020-12-06] MEDS: CHOLECALCIFEROL 1,000 UNIT TABLET PO SCH (08:17)
[2020-12-06] MEDS: PAROXETINE HCL 20 MG TABLET PO SCH (08:17)
[2020-12-06] MEDS: LIOTHYRONINE SODIUM 25 MCG TABLET PO SCH (08:17)
[2020-12-06] MEDS: ASPIRIN 81 MG TAB.CHEW PO SCH (08:17)
[2020-12-06] MEDS: AMLODIPINE 5 MG TABLET PO SCH (08:18)
[2020-12-06] MEDS: ASCORBIC ACID 500 MG TABLET PO SCH (08:19)
[2020-12-06] MEDS: LOSARTAN POTASSIUM 50 MG TABLET PO SCH (08:19)
[2020-12-06] MEDS: MAGNESIUM OXIDE 400 MG TABLET PO SCH (08:19)
[2020-12-06] MEDS: GLUCERNA SHAKE VANILLA 237 ML CAN PO SCH ×3 (08:20→16:47)
[2020-12-06] MEDS: METOPROLOL TARTRATE 25 MG TABLET PO SCH ×2 (08:20→20:28)
[2020-12-06 08:39] VITALS: BP 120/54
[2020-12-06] MEDS: OXYCODONE/APAP 5-325 MG TABLET PO PRN ×2 (08:46→22:34)
[2020-12-06] MEDS: ACETAMINOPHEN 325 MG TABLET PO PRN ×2 (13:50→20:29)
--- NOTE | 2020-12-06 14:24 | NUR ---
INTERDISCIPLINARY TEAM CONFERENCE
[2020-12-06 15:34] VITALS: BP 116/41
[2020-12-06] MEDS: DOCUSATE SODIUM 100 MG CAPSULE PO SCH (20:27)
[2020-12-06] MEDS: ATORVASTATIN 40 MG TABLET PO SCH (20:27)
[2020-12-06 20:46] VITALS: BP 142/63
--- NOTE | 2020-12-06 21:42 | NUR ---
AAOx4 Watching TV upon initial rounds. All due meds given. Continent of bowel and bladder. Uses the bedpan. No BM noted this shift. Tylenol given for pain. Accucheck 169. 4 units humalog given. Needs attended. VSS. No acute distress noted. Will monitor patient.
[2020-12-07 04:00] VITALS: BP 127/68
[2020-12-07] MEDS: PANTOPRAZOLE SODIUM 40 MG TABLET.DR PO SCH (06:13)
[2020-12-07] MEDS: BLOOD SUGAR DIAGNOSTIC 1 EACH STRIP VI SCH ×4 (06:34→21:14)
[2020-12-07] MEDS: INSULIN REGULAR, HUMAN 300 UNIT/3 ML VIAL SQ PRN ×4 (07:41→21:17)
[2020-12-07 08:00] VITALS: BP 157/55
[2020-12-07] MEDS: OXYCODONE/APAP 5-325 MG TABLET PO PRN ×2 (09:29→20:50)
[2020-12-07] MEDS: ASPIRIN 81 MG TAB.CHEW PO SCH (09:30)
[2020-12-07] MEDS: PAROXETINE HCL 20 MG TABLET PO SCH (09:30)
[2020-12-07] MEDS: CHOLECALCIFEROL 1,000 UNIT TABLET PO SCH (09:30)
[2020-12-07] MEDS: LOSARTAN POTASSIUM 50 MG TABLET PO SCH (09:30)
[2020-12-07] MEDS: METOPROLOL TARTRATE 25 MG TABLET PO SCH ×2 (09:30→20:45)
[2020-12-07] MEDS: ASCORBIC ACID 500 MG TABLET PO SCH (09:31)
[2020-12-07] MEDS: AMLODIPINE 5 MG TABLET PO SCH (09:31)
[2020-12-07] MEDS: LIOTHYRONINE SODIUM 25 MCG TABLET PO SCH (09:31)
[2020-12-07] MEDS: GLUCERNA SHAKE VANILLA 237 ML CAN PO SCH ×3 (09:31→17:08)
[2020-12-07] MEDS: MAGNESIUM OXIDE 400 MG TABLET PO SCH (09:31)
[2020-12-07] MEDS: ACETAMINOPHEN 325 MG TABLET PO PRN (13:17)
[2020-12-07 15:50] VITALS: BP 133/74
--- NOTE | 2020-12-07 17:40 | NUR ---
The patient is alert/oriented x4. No distress noted. PRN pain meds given as ordered. BM noted x1 today. Safety checks frequently done.Kept patient clean, dry, and comfortable. All needs attended. Will continue to monitor for any significant changes.
[2020-12-07 20:00] VITALS: BP 141/66
[2020-12-07] MEDS: DOCUSATE SODIUM 100 MG CAPSULE PO SCH (20:45)
[2020-12-07] MEDS: ATORVASTATIN 40 MG TABLET PO SCH (20:45)
--- NOTE | 2020-12-07 21:55 | NUR ---
Left hip pain presented, Percocet given as ordered and needed. Will monitor therapeutic effect.
[2020-12-08 04:00] VITALS: BP 152/58
[2020-12-08] MEDS: PANTOPRAZOLE SODIUM 40 MG TABLET.DR PO SCH (05:59)
[2020-12-08] MEDS: BLOOD SUGAR DIAGNOSTIC 1 EACH STRIP VI SCH ×4 (06:02→20:28)
[2020-12-08] MEDS: INSULIN REGULAR, HUMAN 300 UNIT/3 ML VIAL SQ PRN ×4 (07:45→20:29)
[2020-12-08 08:00] VITALS: BP 149/53
[2020-12-08] MEDS: CHOLECALCIFEROL 1,000 UNIT TABLET PO SCH (08:11)
[2020-12-08] MEDS: PAROXETINE HCL 20 MG TABLET PO SCH (08:11)
[2020-12-08] MEDS: MAGNESIUM OXIDE 400 MG TABLET PO SCH (08:11)
[2020-12-08] MEDS: ASCORBIC ACID 500 MG TABLET PO SCH (08:12)
[2020-12-08] MEDS: LIOTHYRONINE SODIUM 25 MCG TABLET PO SCH (08:12)
[2020-12-08] MEDS: ASPIRIN 81 MG TAB.CHEW PO SCH (08:12)
[2020-12-08] MEDS: OXYCODONE/APAP 5-325 MG TABLET PO PRN ×2 (08:13→22:07)
[2020-12-08] MEDS: METOPROLOL TARTRATE 25 MG TABLET PO SCH ×2 (08:15→20:28)
[2020-12-08] MEDS: LOSARTAN POTASSIUM 50 MG TABLET PO SCH (08:16)
[2020-12-08] MEDS: AMLODIPINE 5 MG TABLET PO SCH (08:16)
[2020-12-08] MEDS: GLUCERNA SHAKE VANILLA 237 ML CAN PO SCH ×3 (09:03→17:06)
[2020-12-08 16:00] VITALS: BP 151/62
[2020-12-08] MEDS ORDERED: DIPHENOXYLATE HCL/ATROP SULF TABLET PO PRN (16:15)
[2020-12-08] MEDS: ACETAMINOPHEN 325 MG TABLET PO PRN (16:35)
--- NOTE | 2020-12-08 18:17 | NUR ---
Patient is alert/orientedx4, able to make all needs known. Noted with pain during the shift, PRN pain medication is given as ordered. Accucheck done and insulin given per sliding scale as ordered. Noted with ANILx1, ordered Diphenoxylate 2tabs BID PRN, noted and carried out. All need attended. No distress noted. Due meds given. Frequent safety checks done. Will continue to monitor.
[2020-12-08 20:00] VITALS: BP 144/65
[2020-12-08] MEDS: DOCUSATE SODIUM 100 MG CAPSULE PO SCH (20:27)
[2020-12-08] MEDS: ATORVASTATIN 40 MG TABLET PO SCH (20:27)
--- NOTE | 2020-12-08 21:30 | NUR ---
Received pt resting in bed. AAO x4. Pt had food delivered. Pt educated regarding her DM. No acute distress noted. Denies pain/ discomfort. Due meds given as ordered. Accucheck 237, insulin coverage given per sliding scale. Safety measures maintained. Call light and personal items within reach. Will continue to monitor.
[2020-12-08] MEDS: PREMARIN XX SCH (21:40)
[2020-12-09 04:00] VITALS: BP 124/58
[2020-12-09] MEDS: PANTOPRAZOLE SODIUM 40 MG TABLET.DR PO SCH (06:04)
[2020-12-09] MEDS: BLOOD SUGAR DIAGNOSTIC 1 EACH STRIP VI SCH ×4 (06:55→20:26)
[2020-12-09] MEDS: OXYCODONE/APAP 5-325 MG TABLET PO PRN ×2 (07:54→21:51)
[2020-12-09] MEDS: INSULIN REGULAR, HUMAN 300 UNIT/3 ML VIAL SQ PRN ×4 (07:56→20:27)
[2020-12-09 08:24] VITALS: BP 134/51
[2020-12-09] MEDS: METOPROLOL TARTRATE 25 MG TABLET PO SCH ×2 (09:00→20:22)
[2020-12-09] MEDS: LOSARTAN POTASSIUM 50 MG TABLET PO SCH (09:50)
[2020-12-09] MEDS: LIOTHYRONINE SODIUM 25 MCG TABLET PO SCH (09:50)
[2020-12-09] MEDS: CHOLECALCIFEROL 1,000 UNIT TABLET PO SCH (09:50)
[2020-12-09] MEDS: MAGNESIUM OXIDE 400 MG TABLET PO SCH (09:50)
[2020-12-09] MEDS: PAROXETINE HCL 20 MG TABLET PO SCH (09:50)
[2020-12-09] MEDS: ASCORBIC ACID 500 MG TABLET PO SCH (09:50)
[2020-12-09] MEDS: ASPIRIN 81 MG TAB.CHEW PO SCH (09:53)
[2020-12-09] MEDS: AMLODIPINE 5 MG TABLET PO SCH (09:53)
[2020-12-09] MEDS: GLUCERNA SHAKE VANILLA 237 ML CAN PO SCH ×3 (09:53→16:42)
[2020-12-09 15:57] VITALS: BP 137/40
--- NOTE | 2020-12-09 18:16 | NUR ---
The patient is a/o x4. No respiratory distress noted. PRN pain medication was given prior to therapy. Latest accucheck is 226mg/dL, insulin per sliding scale given as ordered. Patient denies discomfort. Kept patient clean, dry, and comfortable. All needs attended. All due meds given. Call light within reach. safety precaution maintained. Will continue to monitor for any significant changes.
[2020-12-09] MEDS: DOCUSATE SODIUM 100 MG CAPSULE PO SCH (20:21)
[2020-12-09] MEDS: ATORVASTATIN 40 MG TABLET PO SCH (20:23)
[2020-12-09 20:26] VITALS: BP 115/41
[2020-12-09] MEDS: PREMARIN XX SCH (20:30)
[2020-12-10 04:24] VITALS: BP 102/48
--- NOTE | 2020-12-10 05:24 | NUR ---
Shift End Report: Slept well. Medicated once for pain with relief. No further complaint presented. All needs attended and met. No significant event reported. Continue current rehab plan of care. VS stable.
[2020-12-10] MEDS: BLOOD SUGAR DIAGNOSTIC 1 EACH STRIP VI SCH ×4 (06:12→20:16)
[2020-12-10] MEDS: PANTOPRAZOLE SODIUM 40 MG TABLET.DR PO SCH (06:12)
[2020-12-10 08:59] VITALS: BP 130/47
[2020-12-10] MEDS: GLUCERNA SHAKE VANILLA 237 ML CAN PO SCH ×2 (09:00→19:00)
[2020-12-10] MEDS: ASCORBIC ACID 500 MG TABLET PO SCH (11:11)
[2020-12-10] MEDS: METOPROLOL TARTRATE 25 MG TABLET PO SCH ×2 (11:11→20:20)
[2020-12-10] MEDS: MAGNESIUM OXIDE 400 MG TABLET PO SCH (11:12)
[2020-12-10] MEDS: ASPIRIN 81 MG TAB.CHEW PO SCH (11:12)
[2020-12-10] MEDS: PAROXETINE HCL 20 MG TABLET PO SCH (11:12)
[2020-12-10] MEDS: LOSARTAN POTASSIUM 50 MG TABLET PO SCH (11:12)
[2020-12-10] MEDS: OXYCODONE/APAP 5-325 MG TABLET PO PRN ×2 (11:13→20:17)
[2020-12-10] MEDS: CHOLECALCIFEROL 1,000 UNIT TABLET PO SCH (11:13)
[2020-12-10] MEDS: AMLODIPINE 5 MG TABLET PO SCH (11:13)
[2020-12-10 12:00] VITALS: BP 154/45
[2020-12-10] MEDS: INSULIN REGULAR, HUMAN 300 UNIT/3 ML VIAL SQ PRN ×3 (12:24→20:19)
[2020-12-10 15:49] VITALS: BP 145/44
[2020-12-10] MEDS: ACETAMINOPHEN 325 MG TABLET PO PRN (17:29)
[2020-12-10 20:06] VITALS: BP 142/95
[2020-12-10] MEDS: ATORVASTATIN 40 MG TABLET PO SCH (20:16)
[2020-12-10] MEDS: DOCUSATE SODIUM 100 MG CAPSULE PO SCH (20:16)
--- NOTE | 2020-12-10 20:27 | NUR ---
Patient received in bed, AxOx4 VSS. No acute distress noted on RA, no SOB noted. c/o of pain/ discomfort 7/10 in hip/pelvic area. Administered Percocet PRN. Due medications administered and tolerated well. Held Metoprolol HR 50. BS 202, covered per sliding scale. Skin intact. Safety measures and fall precautions maintained. Andre light and all personal belongings within reach. Will continue to monitor.
[2020-12-11 04:06] VITALS: BP 135/47
[2020-12-11] MEDS: PANTOPRAZOLE SODIUM 40 MG TABLET.DR PO SCH (06:30)
[2020-12-11] MEDS: BLOOD SUGAR DIAGNOSTIC 1 EACH STRIP VI SCH ×4 (06:30→20:18)
[2020-12-11 07:31] VITALS: BP 139/43
[2020-12-11] MEDS: GLUCERNA SHAKE VANILLA 237 ML CAN PO SCH ×3 (09:00→18:36)
[2020-12-11] MEDS: CHOLECALCIFEROL 1,000 UNIT TABLET PO SCH (09:37)
[2020-12-11] MEDS: OXYCODONE/APAP 5-325 MG TABLET PO PRN ×3 (09:37→20:06)
[2020-12-11] MEDS: ASCORBIC ACID 500 MG TABLET PO SCH (09:39)
[2020-12-11] MEDS: PAROXETINE HCL 20 MG TABLET PO SCH (09:39)
[2020-12-11] MEDS: ASPIRIN 81 MG TAB.CHEW PO SCH (09:40)
[2020-12-11] MEDS: AMLODIPINE 5 MG TABLET PO SCH (09:40)
[2020-12-11] MEDS: ACETAMINOPHEN 325 MG TABLET PO PRN (09:41)
[2020-12-11] MEDS: LOSARTAN POTASSIUM 50 MG TABLET PO SCH (09:45)
[2020-12-11] MEDS: MAGNESIUM OXIDE 400 MG TABLET PO SCH (09:46)
[2020-12-11] MEDS: LIOTHYRONINE SODIUM 25 MCG TABLET PO SCH (09:48)
[2020-12-11] MEDS: METOPROLOL TARTRATE 25 MG TABLET PO SCH ×2 (09:53→20:07)
[2020-12-11 15:52] VITALS: BP 109/38
[2020-12-11] MEDS: INSULIN REGULAR, HUMAN 300 UNIT/3 ML VIAL SQ PRN ×2 (18:34→20:15)
[2020-12-11 20:03] VITALS: BP 142/47
[2020-12-11] MEDS: ATORVASTATIN 40 MG TABLET PO SCH (20:06)
[2020-12-11] MEDS: DOCUSATE SODIUM 100 MG CAPSULE PO SCH (20:06)
--- NOTE | 2020-12-11 21:00 | NUR ---
Received pt resting in bed. AAO x4. No acute distress noted. C/o moderate pain on the pelvic area, PRN pain med given. Blood sugar 298, insulin coverage given as per sliding scale. Other due meds given as ordered. Metoprolol held due to HR 50. Safety measures maintained. Call light and personal items within reach. Will continue to monitor.
[2020-12-12 04:00] VITALS: BP 128/50
[2020-12-12] MEDS: PANTOPRAZOLE SODIUM 40 MG TABLET.DR PO SCH (06:31)
[2020-12-12] MEDS: BLOOD SUGAR DIAGNOSTIC 1 EACH STRIP VI SCH ×4 (06:36→20:13)
[2020-12-12] MEDS: INSULIN REGULAR, HUMAN 300 UNIT/3 ML VIAL SQ PRN ×4 (07:40→20:19)
[2020-12-12 08:14] VITALS: BP 138/47
[2020-12-12] MEDS: LIOTHYRONINE SODIUM 25 MCG TABLET PO SCH (08:34)
[2020-12-12] MEDS: ASCORBIC ACID 500 MG TABLET PO SCH (08:34)
[2020-12-12] MEDS: OXYCODONE/APAP 5-325 MG TABLET PO PRN ×2 (08:34→21:22)
[2020-12-12] MEDS: AMLODIPINE 5 MG TABLET PO SCH (08:35)
[2020-12-12] MEDS: GLUCERNA SHAKE VANILLA 237 ML CAN PO SCH ×3 (08:35→16:47)
[2020-12-12] MEDS: ASPIRIN 81 MG TAB.CHEW PO SCH (08:35)
[2020-12-12] MEDS: CHOLECALCIFEROL 1,000 UNIT TABLET PO SCH (08:35)
[2020-12-12] MEDS: LOSARTAN POTASSIUM 50 MG TABLET PO SCH (08:35)
[2020-12-12] MEDS: MAGNESIUM OXIDE 400 MG TABLET PO SCH (08:35)
[2020-12-12] MEDS: PAROXETINE HCL 20 MG TABLET PO SCH (08:35)
[2020-12-12] MEDS: METOPROLOL TARTRATE 25 MG TABLET PO SCH ×2 (09:00→20:15)
--- NOTE | 2020-12-12 09:27 | NUR ---
Patient was noted with HR47, Metoprolol not given. Will continue to monitor. Dr. Linda segura.
[2020-12-12] MEDS: ACETAMINOPHEN 325 MG TABLET PO PRN (13:21)
[2020-12-12 15:39] VITALS: BP 116/68
--- NOTE | 2020-12-12 19:24 | NUR ---
The patient is a/o x4. No respiratory distress noted. PRN pain medication was given prior to therapy and PRN on the second therapy. Latest accucheck is 272, insulin per sliding scale given as ordered. MD order XR on the hip and rapid COVID on 12/13/2020. All needs attended. All due meds given. Call light within reach. safety precaution maintained. Will continue to monitor for any significant changes.
[2020-12-12] MEDS: DOCUSATE SODIUM 100 MG CAPSULE PO SCH (20:13)
[2020-12-12] MEDS: PREMARIN XX SCH (20:13)
[2020-12-12] MEDS: ATORVASTATIN 40 MG TABLET PO SCH (20:13)
[2020-12-12 20:15] VITALS: BP 131/45
--- NOTE | 2020-12-12 20:52 | NUR ---
Received pt resting in bed and watching tv. AAO x4. No acute distress noted. Denies pain/ discomfort at this time. Assisted to bedpan. Due meds given as ordered. Held Lopressor due to HR 50. Blood sugar 279, insulin coverage given as per sliding scale. Safety measures maintained. Bed alarm on. Call light and personal items within reach. Will continue to monitor.
[2020-12-13 04:10] VITALS: BP 134/45
[2020-12-13] MEDS: PANTOPRAZOLE SODIUM 40 MG TABLET.DR PO SCH (06:13)
[2020-12-13] MEDS: BLOOD SUGAR DIAGNOSTIC 1 EACH STRIP VI SCH ×4 (06:38→20:18)
[2020-12-13] MEDS: INSULIN REGULAR, HUMAN 300 UNIT/3 ML VIAL SQ PRN ×4 (07:30→20:21)
[2020-12-13 07:33] VITALS: BP 133/43
[2020-12-13] MEDS: PAROXETINE HCL 20 MG TABLET PO SCH (08:16)
[2020-12-13] MEDS: ASCORBIC ACID 500 MG TABLET PO SCH (08:16)
[2020-12-13] MEDS: ASPIRIN 81 MG TAB.CHEW PO SCH (08:16)
[2020-12-13] MEDS: CHOLECALCIFEROL 1,000 UNIT TABLET PO SCH (08:16)
[2020-12-13] MEDS: MAGNESIUM OXIDE 400 MG TABLET PO SCH (08:16)
[2020-12-13] MEDS: METOPROLOL TARTRATE 25 MG TABLET PO SCH ×2 (08:16→20:00)
[2020-12-13] MEDS: LIOTHYRONINE SODIUM 25 MCG TABLET PO SCH (08:17)
[2020-12-13] MEDS: AMLODIPINE 5 MG TABLET PO SCH (08:17)
[2020-12-13] MEDS: LOSARTAN POTASSIUM 50 MG TABLET PO SCH (08:17)
[2020-12-13] MEDS: GLUCERNA SHAKE VANILLA 237 ML CAN PO SCH ×3 (08:18→16:15)
[2020-12-13] MEDS: OXYCODONE/APAP 5-325 MG TABLET PO PRN ×3 (09:21→21:20)
--- NOTE | 2020-12-13 13:20 | NUR ---
CT SCAN OF THE PELVIC DONE PER MD ORDERS
[2020-12-13 15:20] VITALS: BP 133/46
--- NOTE | 2020-12-13 16:00 | NUR ---
NOTIFIED THE CT SCAN RESULT TO DR HAND NEW ORDERS RECEIVED AND NOTIFIED
--- NOTE | 2020-12-13 17:00 | NUR ---
DR ALCANTAR ORTHOPEDIC SURGEON NOTIFIED THE ORTHO CONSULTATION NO NEW ORDERS RECEIVED
--- NOTE | 2020-12-13 19:16 | NUR ---
INTERDISCIPLINARY TEAM CONFERENCE
[2020-12-13] MEDS: DOCUSATE SODIUM 100 MG CAPSULE PO SCH (20:00)
[2020-12-13] MEDS: ATORVASTATIN 40 MG TABLET PO SCH (20:00)
[2020-12-13 20:24] VITALS: BP 131/50
[2020-12-14] MEDS: ACETAMINOPHEN 325 MG TABLET PO PRN ×3 (03:36→23:41)
[2020-12-14 04:15] VITALS: BP 114/50
[2020-12-14] MEDS: PANTOPRAZOLE SODIUM 40 MG TABLET.DR PO SCH (06:02)
[2020-12-14] MEDS: BLOOD SUGAR DIAGNOSTIC 1 EACH STRIP VI SCH ×4 (06:59→20:27)
[2020-12-14 08:00] VITALS: BP 145/49
--- NOTE | 2020-12-14 08:00 | NUR ---
The patient is a/ox4. PRN pain medication given as ordered. Lastest accucheck was 114, no isulin sliding scale coverage given as ordered. Seen by Dr. Carter seen the patient with plan of [facility] on the LLE, she can work with PT and can be discharged w/ follow up as outpatient. All needs attended. All due meds given. Call light within reach. safety precaution maintained. Will continue to monitor.
[2020-12-14] MEDS: INSULIN REGULAR, HUMAN 300 UNIT/3 ML VIAL SQ PRN ×3 (08:02→20:28)
[2020-12-14] MEDS: LIOTHYRONINE SODIUM 25 MCG TABLET PO SCH (08:10)
[2020-12-14] MEDS: CHOLECALCIFEROL 1,000 UNIT TABLET PO SCH (08:11)
[2020-12-14] MEDS: MAGNESIUM OXIDE 400 MG TABLET PO SCH (08:12)
[2020-12-14] MEDS: ASCORBIC ACID 500 MG TABLET PO SCH (08:14)
[2020-12-14] MEDS: ASPIRIN 81 MG TAB.CHEW PO SCH (08:14)
[2020-12-14] MEDS: AMLODIPINE 5 MG TABLET PO SCH (08:15)
[2020-12-14] MEDS: LOSARTAN POTASSIUM 50 MG TABLET PO SCH (08:15)
[2020-12-14] MEDS: PAROXETINE HCL 20 MG TABLET PO SCH (08:15)
[2020-12-14] MEDS: METOPROLOL TARTRATE 25 MG TABLET PO SCH ×2 (08:16→20:01)
[2020-12-14] MEDS: OXYCODONE/APAP 5-325 MG TABLET PO PRN ×2 (08:16→20:01)
[2020-12-14] MEDS: GLUCERNA SHAKE VANILLA 237 ML CAN PO SCH ×3 (08:17→17:17)
[2020-12-14 16:00] VITALS: BP 146/51
[2020-12-14 20:00] VITALS: BP 125/50
[2020-12-14] MEDS: DOCUSATE SODIUM 100 MG CAPSULE PO SCH (20:01)
[2020-12-14] MEDS: ATORVASTATIN 40 MG TABLET PO SCH (20:01)
[2020-12-15 04:10] VITALS: BP 144/44
[2020-12-15] MEDS: PANTOPRAZOLE SODIUM 40 MG TABLET.DR PO SCH (06:01)
[2020-12-15] MEDS: BLOOD SUGAR DIAGNOSTIC 1 EACH STRIP VI SCH ×3 (06:28→16:25)
[2020-12-15 07:44] VITALS: BP 130/49
[2020-12-15] MEDS: ASPIRIN 81 MG TAB.CHEW PO SCH (08:57)
[2020-12-15] MEDS: PAROXETINE HCL 20 MG TABLET PO SCH (08:57)
[2020-12-15] MEDS: CHOLECALCIFEROL 1,000 UNIT TABLET PO SCH (08:58)
[2020-12-15] MEDS: ASCORBIC ACID 500 MG TABLET PO SCH (08:58)
[2020-12-15] MEDS: INSULIN REGULAR, HUMAN 300 UNIT/3 ML VIAL SQ PRN ×3 (08:59→16:27)
[2020-12-15] MEDS: METOPROLOL TARTRATE 25 MG TABLET PO SCH (09:00)
[2020-12-15] MEDS: LIOTHYRONINE SODIUM 25 MCG TABLET PO SCH (09:15)
[2020-12-15] MEDS: LOSARTAN POTASSIUM 50 MG TABLET PO SCH (09:16)
[2020-12-15] MEDS: OXYCODONE/APAP 5-325 MG TABLET PO PRN ×2 (09:18→15:55)
[2020-12-15] MEDS: GLUCERNA SHAKE VANILLA 237 ML CAN PO SCH ×2 (09:48→13:27)
[2020-12-15] MEDS: AMLODIPINE 5 MG TABLET PO SCH (09:51)
[2020-12-15] MEDS: MAGNESIUM OXIDE 400 MG TABLET PO SCH (11:47)
[2020-12-15 15:17] VITALS: BP 119/50
--- NOTE | 2020-12-15 15:58 | NUR ---
Dr. Perez in the unit, ordered discharge to home with home health for PT, OT and nursing services.
--- NOTE | 2020-12-15 17:00 | NUR ---
José Miguel Galvan ZANJERO in the unit, ZANJERO reconciled discharge medications, informed ZANJERO regarding UA result and per ZANJERO no new order.
--- NOTE | 2020-12-15 17:51 | NUR ---
Discharge instructions provided to the patient with verbalized understanding. Discharge papers signed by and given to the patient including prescription. She denies any pain or discomfort at this time. Patient remains alert, oriented x 4, not in any form of distress. Skin intact. All belongings well accounted for. Assisted with her needs. Patient picked up by [facility] ambulance, transferred via gurney. Patient discharged to home with home health.
== END 2020-12-15 17:50 | disposition home health service (06) | DRG 559 ==
PROVIDERS: ADMIT Physical Medicine & Rehabilitation Pain Medicine; ATTEND Physical Medicine & Rehabilitation Pain Medicine
DX: S32.82XD Multiple fractures of pelvis without disruption of pelvic ring, subsequent encounter for fracture with routine healing (principal); G93.41 Metabolic encephalopathy; I21.A1 Myocardial infarction type 2; D68.59 Other primary thrombophilia; S72.142D Displaced intertrochanteric fracture of left femur, subsequent encounter for closed fracture with routine healing; W19.XXXD Unspecified fall, subsequent encounter; E03.9 Hypothyroidism, unspecified; E11.9 Type 2 diabetes mellitus without complications; E78.5 Hyperlipidemia, unspecified; I10 Essential (primary) hypertension; Z87.440 Personal history of urinary (tract) infections; F32.9 Major depressive disorder, single episode, unspecified; Z96.649 Presence of unspecified artificial hip joint; M62.81 Muscle weakness (generalized); Z88.5 Allergy status to narcotic agent; Z88.0 Allergy status to penicillin; Z88.8 Allergy status to other drugs, medicaments and biological substances
CPT/HCPCS: 36415; 72192; 73502; 85025; 87086; 97161; J1815; J8499